=== PATIENT | female | born 1955 | race Caucasian/White ===

== ENCOUNTER 2018-09-18 11:44 | Emergency (ER) | payer MEDICAID ==
[~2018-09-18] VITALS: Ht 167.6 cm; Wt 97.5 kg
[~2018-09-18 11:44] MED LIST: ACETAMINOP160 MG/54 GT; ALBUTEROL2.5 MG/3 M INH; CARDIZEM30 MG GT; CRANBERRY450 M5 GT; GLUCAGON EMERGEN1 MG IJ; KEPPRA LIQ100 MG/1 M GT; LIPITOR20 MG GT; LOPRESSOR25 M1 GT; MILK OF MA400 MG/51 GT; MULTIVITAMINS1 EAC8 GT; SEROQUEL100 MG GT; VALPROIC A250 MG/5 M GT; ZESTRIL20 MG GT; [UNRECOGNIZED DRUG - OTHER]
[2018-09-18 15:03] VITALS: BP 171/111
--- NOTE | 2018-09-18 16:13 | Emergency Room Report ---
History of Present Illness General Chief Complaint: Malfunctioning Gastric Tube Source: Patient Present Illness Allergies: Coded Allergies: No Known Allergies (Unverified , 07/02/15) Patient History Now: No Nursing Documentation-[facility] Past Medical History: No History, Except For Hx Hypertension: Yes Hx Diabetes: Yes Hx Cancer: Yes - SKIN Hx Gastrointestinal Problems: Yes Hx Neurological Problems: Yes Hx Cerebrovascular Accident: Yes Hx Seizures: Yes Physical Exam Vital Signs Date Time Temp Pulse Resp B/P (MAP) Pulse Ox O2 Delivery O2 Flow Rate FiO2 09/18/18 11:39 97.4 78 18 178/104 98 Room Air 97.3 Medical Decision Making Diagnostic Impression: Primary Impression: Malfunction of gastrostomy tube ER Course This patient presents for G-tube replacement. The G-tube was replaced in the typical manner without complication or incident. A KUB was obtained which showed Gastrografin consistent with appropriate placement in the stomach. The patient was returned to the custodial facility. Last Vital Signs Date Time Temp Pulse Resp B/P (MAP) Pulse Ox O2 Delivery O2 Flow Rate FiO2 09/18/18 15:03 97.3 85 18 171/111 96 Room Air 97.3 Disposition: HOME, SELF-CARE Condition: Stable Referrals: Brett Paul MD (PCP) Patient Instructions: Gastrostomy Tube Home Guide, Adult Radha Card DO Sep 18, 2018 16:13
--- NOTE | 2018-09-18 16:48 | Diagnostic Imaging Report ---
Indication: Gastrostomy check Comparison: None Single view of the abdomen obtained Findings: The gastrostomy balloon is in the body of the stomach. There is contrast in the stomach and duodenum. No leak identified. IMPRESSION: Satisfactory position of the gastrostomy. No leak
[2018-09-18 17:01] VITALS: BP 169/105
[2018-09-18 17:12] VITALS: BP 169/105
== END 2018-09-18 17:11 | disposition home or self-care (01) ==
LOC: EDBD 11:44 → EMR 13:10 → EDBEDREQ 14:09 → ENRESERV 15:32 → CANBEDREQ 15:55 → EMR 17:11
DX: K94.23 Gastrostomy malfunction (principal); Y83.3 Surgical operation with formation of external stoma as the cause of abnormal reaction of the patient, or of later complication, without mention of misadventure at the time of the procedure; Y92.9 Unspecified place or not applicable; I10 Essential (primary) hypertension; E11.9 Type 2 diabetes mellitus without complications; Z86.73 Personal history of transient ischemic attack (TIA), and cerebral infarction without residual deficits
CPT/HCPCS: 43760; 74018; 99284; Z7502

== ENCOUNTER 2019-01-11 11:52 | Emergency (ER) | payer MEDICAID ==
[~2019-01-11] VITALS: Ht 167.6 cm; Wt 115.2 kg
[2019-01-11 11:55] VITALS: BP 157/74
--- NOTE | 2019-01-11 11:55 | NUR ---
ED Nurse Note: Pt brought by GER from [facility] for g-tube replacement. noted gtube with soiled dressing. gtube site cleaned. noted rash and reddned area around abd. abd soft nontender, active bs. will cont monitor.
[2019-01-11] MEDS ORDERED: PRO-STAT LIQUID30 ML GT (12:38)
[2019-01-11] MEDS ORDERED: ZESTRIL20 MG GT (12:39)
--- NOTE | 2019-01-11 13:08 | Emergency Room Report ---
History of Present Illness General Chief Complaint: Malfunctioning Gastric Tube Source: Patient, Medical Record Present Illness HPI 63-year-old female sent for malfunction in dislodged G-tube. Patient has no complaints and is not sure how it dislodged. Allergies: Coded Allergies: No Known Allergies (Unverified , 07/02/15) Patient History Past Medical History: see triage record Reviewed Nursing Documentation: PMH: Agreed; PSxH: Agreed Nursing Documentation-PMH Past Medical History: No History, Except For Hx Hypertension: Yes Hx Diabetes: Yes Hx Cancer: Yes - SKIN Hx Gastrointestinal Problems: Yes Hx Neurological Problems: Yes Hx Cerebrovascular Accident: Yes Hx Seizures: Yes Review of Systems All Other Systems: negative except mentioned in HPI Physical Exam Vital Signs Date Time Temp Pulse Resp B/P (MAP) Pulse Ox O2 Delivery O2 Flow Rate FiO2 01/11/19 11:49 97.5 83 21 164/98 97 Room Air Sp02 EP Interpretation: reviewed, normal General Appearance: no apparent distress, alert, non-toxic Head: normocephalic Eyes: bilateral eye normal inspection, bilateral eye PERRL, bilateral eye EOMI ENT: normal ENT inspection, hearing grossly normal, no angioedema, normal voice , moist mucus membranes Neck: normal inspection, supple, supple/symm/no masses Respiratory: chest non-tender, lungs clear, normal breath sounds, chest symmetrical, palpation of chest normal Cardiovascular #1: normal peripheral pulses, regular rate, rhythm, edema - B/L LE Cardiovascular #2: 2+ radial (R), 2+ radial (L) Gastrointestinal: normal inspection, non tender, soft, no mass, no guarding, no rebound, other - vizcarra catheter in g tube site Rectal: deferred Genitourinary: normal inspection, no CVA tenderness Musculoskeletal: back normal, gait/station normal, normal range of motion, non- tender, no calf tenderness Neurologic: alert, responsive, 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 Medical Decision Making Diagnostic Impression: Primary Impression: Malfunction of gastrostomy tube ER Course Patient had a dislodged G-tube, there is a Vizcarra catheter sitting in place when I valuated the stoma, there is no surrounding erythema, tract seem to be well matured with a Vizcarra catheter in place and I replaced the G-tube, patient will be discharged. Other X-Ray Diagnostic Results Other X-Ray Diagnostic Results : X-Ray ordered: kub # of Views/Limited Vs Complete: 1 View Indication: Other - tube replacement Interpretation: no dislocation, no soft tissue swelling, no fractures, nonspecific bowel gas, no sbo Impression: Other - gastrograffin in stomach and duodenum Electronically Signed by: Mary Chilel MD Last Vital Signs Date Time Temp Pulse Resp B/P (MAP) Pulse Ox O2 Delivery O2 Flow Rate FiO2 01/11/19 11:49 97.5 83 21 164/98 97 Room Air Disposition: HOME, SELF-CARE Condition: Stable MARY CHILEL M.D Jan 11, 2019 13:08
--- NOTE | 2019-01-11 13:41 | Diagnostic Imaging Report ---
Indication: Post gastrostomy placement Technique: Supine view of the abdomen after injection of water-soluble contrast into gastrostomy Comparison: 09/18/2018 Findings: Contrast opacifies the stomach. No contrast extravasation is demonstrated. The bowel gas pattern is unremarkable. Stool distends the rectum Impression: Satisfactory position of gastrostomy tube Possible rectal fecal impaction
--- NOTE | 2019-01-11 13:50 | NUR ---
ED Nurse Note: gtube confirmed via xray, ermd aware, plan d/c to snf.
--- NOTE | 2019-01-11 14:25 | NUR ---
ED Nurse Note: Report given to Alanna at [facility] with transportation ETA and GT replacement with 20Fr.
[2019-01-11 14:30] VITALS: BP 170/75
--- NOTE | 2019-01-11 15:02 | NUR ---
ED Nurse Note: Pt was cleared by JEFF to be sent back to [facility] after GT replaced at ER. Pt aao x 0, but verbalizes unrelate things, skin clean and intact, GT site clean and intact, little agiated about seeing unfamiliar people but calm down with explanation and talk therapy. 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
== END 2019-01-11 16:00 | disposition home or self-care (01) ==
LOC: EDBD 11:52 → EMR 12:25
DX: K94.23 Gastrostomy malfunction (principal); Y83.3 Surgical operation with formation of external stoma as the cause of abnormal reaction of the patient, or of later complication, without mention of misadventure at the time of the procedure; E11.9 Type 2 diabetes mellitus without complications; I10 Essential (primary) hypertension; Z85.828 Personal history of other malignant neoplasm of skin; Z86.73 Personal history of transient ischemic attack (TIA), and cerebral infarction without residual deficits
CPT/HCPCS: 43762; 74018; 99283; Z7502

== ENCOUNTER 2019-01-12 11:01 | Emergency (ER) | payer MEDICAID ==
[~2019-01-12] VITALS: Ht 160 cm; Wt 81.6 kg
[~2019-01-12 11:01] MED LIST changes: +PRO-STAT LIQUID30 ML GT
--- NOTE | 2019-01-12 11:53 | Diagnostic Imaging Report ---
Indication: Post gastrostomy replacement Technique: Supine view of the abdomen after injection of water-soluble contrast into gastrostomy Comparison: 01/11/2019 Findings: Contrast opacifies the stomach. No contrast extravasation is demonstrated. The bowel gas pattern is unremarkable. Contrast from the previous day's injection is seen within the colon Impression: Satisfactory position of gastrostomy tube
[2019-01-12 12:00] VITALS: BP 127/61
--- NOTE | 2019-01-12 12:00 | NUR ---
ED Nurse Note: pt brought by GER from [facility] due to dislodge of g-tube. g-tube replaced yesterday at [facility] ER. per EMS, pt pulled out the g-tube. AAO x2. skin warm to touch. no open wound noted. respirations even and non-labored noted. Dr. Block inserted 18 F g-tube at the bed side without any difficulty. gastrografin pushed, x-ray took, flused with 60 ml of tap water. pt transferred back to SNF by GER [id number].
--- NOTE | 2019-01-12 12:02 | NUR ---
ED Nurse Note: RN attempted to give a report to SNF. no answer.
--- NOTE | 2019-01-13 07:51 | Emergency Room Report ---
History of Present Illness General Chief Complaint: Malfunctioning Gastric Tube Source: Medical Record Present Illness HPI 63-year-old female presents ED for evaluation. Patient brought in by EMS for G- tube replacement. [facility] Replaced with Woodruff catheter. Per EMS patient was here yesterday for the same problem and G-tube was replaced by ER physician. Upon arrival patient showing no signs of distress. No reported nausea or vomiting. Nonverbal at baseline. No other aggravating relieving factors. No other associated symptoms Allergies: Coded Allergies: No Known Allergies (Unverified , 07/02/15) Patient History Past Medical History: DM, HTN, CVA/TIA, seizures Pertinent Family History: none Social History: Denies: smoking, alcohol use, drug use Now: No Immunizations: UTD Reviewed Nursing Documentation: PMH: Agreed; PSxH: Agreed Nursing Documentation-PMH Hx Hypertension: Yes Hx Diabetes: Yes Hx Cancer: Yes - SKIN Hx Gastrointestinal Problems: Yes Hx Neurological Problems: Yes Hx Cerebrovascular Accident: Yes Hx Seizures: Yes Review of Systems All Other Systems: limited Physical Exam Vital Signs Date Time Temp Pulse Resp B/P (MAP) Pulse Ox O2 Delivery O2 Flow Rate FiO2 01/12/19 11:08 97.9 70 16 127/61 97 Room Air Sp02 EP Interpretation: reviewed, normal General Appearance: no apparent distress, alert, non-toxic Head: normocephalic ENT: normal ENT inspection Neck: normal inspection Respiratory: chest non-tender, lungs clear, normal breath sounds, speaking full sentences Cardiovascular #1: regular rate, rhythm, no edema Gastrointestinal: normal bowel sounds, non tender, soft, non-distended, no guarding, no rebound, other - Gtube site C/D/I Rectal: deferred Genitourinary: no CVA tenderness Musculoskeletal: normal inspection Neurologic: other - nonverbal Psychiatric: other - nonverbal Skin: normal inspection Lymphatic: normal inspection Procedures Additional Procedure Procedure Narrative G-tube placement Patient placed on stretcher. Old G-tube is removed by deflating the balloon using syringe. G-tube site is inspected with no contraindications to G-tube placement. G-tube slowly inserted until resistance is met; G-tube balloon is slowly filled with 20 mL of normal saline and slowly retracted back until resistance is met. G-tube placement is confirmed with KUB study using Gastrografin Medical Decision Making Diagnostic Impression: Primary Impression: Malfunction of gastrostomy tube ER Course Hospital Course 63-year-old female presents to ED for G-tube placement. [facility]ed [facility]tube at [facility] Clinical course Patient placed on stretcher. After initial history and physical I replaced G- tube and inflate the balloon. G-tube placement confirmed with KUB study. Patient remained stable without any signs of distress. detention called and patient subsequently discharged back to facility. Dr Paul made aware that G-tube was successfully replaced and patient return to facility Diagnosis - malfunction of G tube stable and discharged back to facility. Followup with PMD. Return to ED if symptoms recur or worsen Other X-Ray Diagnostic Results Other X-Ray Diagnostic Results : X-Ray ordered: KUB # of Views/Limited Vs Complete: 1 View Indication: Other - Gtube placement EP Interpretation: Yes Interpretation: nonspecific bowel gas, no sbo, other - Gtube in place. no extravasation Impression: Other - Gtube in place Electronically Signed by: Electronically signed by Timbo Block MD Last Vital Signs Date Time Temp Pulse Resp B/P (MAP) Pulse Ox O2 Delivery O2 Flow Rate FiO2 01/12/19 12:00 97.9 70 22 127/61 97 Room Air Status: improved Disposition: XFER SNF Condition: Stable Patient Instructions: Gastrostomy Tube Home Guide, Adult Timbo Block MD Jan 13, 2019 07:51
== END 2019-01-12 12:02 ==
LOC: EDBD 11:01 → EMR 11:37
DX: K94.23 Gastrostomy malfunction (principal); Y83.3 Surgical operation with formation of external stoma as the cause of abnormal reaction of the patient, or of later complication, without mention of misadventure at the time of the procedure; Y92.129 Unspecified place in nursing home as the place of occurrence of the external cause; E11.9 Type 2 diabetes mellitus without complications; I10 Essential (primary) hypertension; Z85.828 Personal history of other malignant neoplasm of skin; Z86.73 Personal history of transient ischemic attack (TIA), and cerebral infarction without residual deficits
CPT/HCPCS: 43762; 74018; 99283; Z7502

== ENCOUNTER 2019-03-06 00:44 | Inpatient (IN) | payer MEDICAID ==
[2019-03-06] VITALS (9 sets, daily range): BP systolic 79–109; BP diastolic 39–86
[~2019-03-06] VITALS: Ht 167.6 cm; Wt 112.5 kg
--- NOTE | 2019-03-06 01:00 | NUR ---
ED Nurse Note: RECIEVED PT BIBA FROM SNF WITH C/O FEVER AT 103, PT WAS MEDICATED WITH TYLENOL KALSOMINER, PT IS ON GURNEY AWAKE, ALERT AND ORIENTED X 4, SLIGHTLY LETHARGIC BUT DOES RESPOND APPROPRIATELY, PT DENIES CP OR ANY PAIN, PT SKIN IS VERY HOT TO TOUCH, ALSO NOTED WITH CELLULITIS OF RIGHT HIP, MD AWARE, PT IMMEDIATELY GOWNED AND PLACED ON CARDIAC MONITORING, RECTAL TEMPT TAKEN ALSO, IV LINE PLACED AND LABS DRAWN, WILL START SEPTIC PROTOCOL PER MD ORDER AND CLOSELY MONITOR, PT HAS SEIZURE HISTORY, PRECAUTIONS TAKEN AND SIDE RAILS PADDED, WILL RESUME CARE ORDERED AND CLOSELY MONITOR.
[2019-03-06] MEDS ORDERED: Sodium Chloride 3,400 ML IVLG ONE (01:15)
[2019-03-06 01:26] LABS: BASOPHILS % (AUTO) 0.5 % (0.0-2.0); HEMATOCRIT 40.5 % (37.0-47.0); HEMOGLOBIN 13.7 G/DL (12.0-16.0); LYMPHOCYTES % (AUTO) 13.5 % (20.0-45.0); MEAN CORPUSCULAR VOLUME 92 FL (80-99); MONOCYTES % (AUTO) 5.2 % (1.0-10.0); NEUTROPHILS % (AUTO) 80.8 % (45.0-75.0); PLATELET COUNT 149 K/UL (150-450); RED BLOOD COUNT 4.38 M/UL (4.20-5.40); RED CELL DISTRIBUTION WIDTH 13.2 % (11.6-14.8); WHITE BLOOD COUNT 13.7 K/UL (4.8-10.8)
[2019-03-06] MEDS ORDERED: Vancomycin 1.5 GM in NS 275 ML IVPB ONE (01:30)
[2019-03-06] MEDS ORDERED: Cefepime HCl 1 GM in D5W 55 ML IVPB ONE (01:30)
[2019-03-06 01:31] LABS: ANION GAP 12 mmol/L (5-15); BLOOD UREA NITROGEN 28 mg/dL (7-18); CALCIUM 8.6 MG/DL (8.5-10.1); CARBON DIOXIDE 24 MMOL/L (21-32); CHLORIDE 102 MMOL/L (98-107); CREATININE 0.8 MG/DL (0.55-1.30); SODIUM 137 MMOL/L (136-145)
--- NOTE | 2019-03-06 01:32 | Emergency Room Report ---
History of Present Illness General Chief Complaint: Fever Source: Patient, Medical Record, EMS Present Illness HPI This is a 63-year-old female with a history heart failure, epilepsy, schizophrenia who presents with chief complaint of fever. Onset for 1 day. Also with redness to the right thigh area. No nausea no vomiting. Fever of 103 at the senior care. History is limited this patient because of her condition. There is no nausea no vomiting. Reported cough at the senior care. Allergies: Coded Allergies: No Known Allergies (Unverified , 07/02/15) Patient History Past Medical History: see triage record, old chart reviewed Past Surgical History: other Pertinent Family History: none Social History: Denies: smoking Now: No Immunizations: UTD, other Reviewed Nursing Documentation: PMH: Agreed; PSxH: Agreed Nursing Documentation-PMH Past Medical History: No History, Except For Hx Hypertension: Yes Hx Diabetes: Yes Hx Cancer: Yes - SKIN Hx Gastrointestinal Problems: Yes Hx Neurological Problems: Yes Hx Cerebrovascular Accident: Yes Hx Seizures: Yes Review of Systems Constitutional: Reports: fever All Other Systems: limited - Limited because of her Condition Physical Exam Vital Signs Date Time Temp Pulse Resp B/P (MAP) Pulse Ox O2 Delivery O2 Flow Rate FiO2 03/06/19 00:42 100.9 80 18 118/46 96 Nasal Cannula 2.0 vitals with fever Sp02 EP Interpretation: reviewed, normal General Appearance: well appearing, no apparent distress, alert, obese Head: normocephalic, atraumatic Eyes: bilateral eye PERRL, bilateral eye EOMI ENT: hearing grossly normal, normal pharynx Neck: full range of motion, supple, no meningismus Respiratory: chest non-tender, lungs clear, normal breath sounds Cardiovascular #1: regular rate, rhythm, no murmur Gastrointestinal: normal bowel sounds, non tender, no mass, no organomegaly, no bruit, non-distended Musculoskeletal: back normal, normal range of motion, other - Right thigh: She has extensive erythema from the iliac crest to the distal thigh laterally. No crepitance. Warm to the touch. Painful. Neurologic: alert Psychiatric: mood/affect normal Skin: warm/dry Medical Decision Making Diagnostic Impression: Primary Impression: Sepsis Qualified Codes: A41.9 - Sepsis, unspecified organism Additional Impressions: Cellulitis of right leg without foot Ventricular tachycardia, nonsustained Morbid obesity with BMI of 40.0-44.9, adult ER Course Patient presents with fever and sepsis. This probably secondary to a large cellulitis in her right upper leg and thigh area. I see no evidence of necrotizing fasciitis. I see no evidence of abscess. Cefepime and vancomycin given. Blood pressure improved with IV fluid. She was doing well and more responsive when she had a nonsustained run of ventricular tachycardia. This lasted about 30 seconds. No deterioration. She was responsive throughout. I discussed case with Dr. Paul who will admit. EKG Diagnostic Results Rate: normal Rhythm: NSR ST Segments: no acute changes Rhythm Strip Diag. Results EP Interpretation: yes Rate: 68 Rhythm: NSR, no PVC's, no ectopy Chest X-Ray Diagnostic Results Chest X-Ray Diagnostic Results : Chest X-Ray Ordered: Yes # of Views/Limited/Complete: 1 View Indication: Shortness of Breath EP Interpretation: Yes Interpretation: no consolidation, no effusion, no pneumothorax, no acute cardiopulmonary disease Impression: No acute disease Electronically Signed by: Darrius Juarez MD Last Vital Signs Date Time Temp Pulse Resp B/P (MAP) Pulse Ox O2 Delivery O2 Flow Rate FiO2 03/06/19 00:42 100.9 80 18 118/46 96 Nasal Cannula 2.0 Status: improved Disposition: ADMITTED INPATIENT Condition: Serious Darrius Juarez MD Mar 06, 2019 01:32
[2019-03-06 01:45] LABS: ALANINE AMINOTRANSFERASE 63 U/L (12-78); ALBUMIN 2.9 G/DL (3.4-5.0); ALBUMIN/GLOBULIN RATIO 0.7 (1.0-2.7); ALKALINE PHOSPHATASE 106 U/L (46-116); ASPARTATE AMINO TRANSFERASE 42 U/L (15-37); BILIRUBIN,TOTAL 0.8 MG/DL (0.2-1.0); CKMB < 0.5 NG/ML (0.0-3.6); CREATINE KINASE 33 U/L (26-308)
--- NOTE | 2019-03-06 02:30 | NUR ---
ED Nurse Note: LACTIC REFLEX DRAWN; SENT DOWN TO LAB.
--- NOTE | 2019-03-06 03:45 | NUR ---
ED Nurse Note: PT CONTINUES TO REST QUIETLY IN BED, SUDDENNLY HAD EPISODE OF VTACH/FIB NOTED ON EKG, MD INFORMED IMMEDIATELY, REPEAT EKG DONE AND PT ALREADY CONVERTED BACK TO NSR, PT REMAINS AWAKE AND ALERT, DENIES CP BUT STATES HAVING ABDOMINAL PAIN, PT ALSO NOTED WITH DIARRHEA, PT CLEANED AND LINEN CHANGED, PT HAS SKIN TEAR IN MID BUTTOCKS AREA, PHOTOS TAKEN AND MD INFORMED, PT REPOSITIONED AND TURNED WITH PILLOW SUPPORT, PT BEING PREAPRED FOR HOSPITAL ADMISSION, ALSONOTED WITH SUDDEN WHEEZING, BREATHING TREATMENT GIVEN BY RT, O2 SAT=97% ON 2L N/C, WILL CONTINUE TO CLOSELY MONITOR. PT TEMP DECREASED TO 100.4 RECTAL.
[2019-03-06] MEDS ORDERED: Albuterol ud Inhalation HHN ONE (04:00)
[2019-03-06 04:30] LABS: APPEARANCE,URINE CLOUDY; BILIRUBIN, URINE NEGATIVE (NEGATIVE); GLUCOSE, URINE (UA) NEGATIVE (NEGATIVE); KETONES,URINE 1+ (NEGATIVE); LEUKOCYTE ESTERASE ,URINE 3+ (NEGATIVE); NITRITE,URINE POSITIVE (NEGATIVE); PH,URINE 5 (4.5-8.0); PROTEIN,URINE 2+ (NEGATIVE); UROBILINOGEN,URINE 1 MG/DL (0.0-1.0)
[2019-03-06 04:38] LABS: COLOR,URINE YELLOW
--- NOTE | 2019-03-06 05:15 | NUR ---
ED Nurse Note: pt continues to rest in bed, responds appropriately, remains in nsr on cardiac monitoring, denies chest pain, sob has lessened, o2 huv=734% on 2l n/c, pt repositioned and turned with pillows to support, will continue to monitor while waiting for room for hospital admission.
[2019-03-06] MEDS: Albuterol/Ipratropium 3ml neb HHN SCH ×5 (07:00→23:27)
--- NOTE | 2019-03-06 07:15 | NUR ---
ED Nurse Note: attempted to report to maya londono on unit, unavailable due to still in report, shift report given to maya gaines, pt resting in bed quietly, nad noted, iv site patent, pt waiting to go to floor for admission.
[2019-03-06] MEDS: dilTIAZem HCl 30mg tab GT SCH ×3 (08:00→20:41)
--- NOTE | 2019-03-06 08:00 | NUR ---
NURSE NOTES: Received report from AFIA Khoury RN. Pt came to tele via Balloon. Pt is alert oriented x1 in stable condition. Patient has no Belonging . IV is asymptomatic and patent. Bed is in the lowest position, 2 side rails up, and break are engaged. Call light, side table within reach. patient had medication at 7;30 which haven't received in ER. Will continue to monitor.
[2019-03-06] MEDS: Metoprolol 25mg tab GT SCH ×2 (09:00→20:41)
[2019-03-06] MEDS ORDERED: Lisinopril 20mg tab GT SCH (09:00)
[2019-03-06] MEDS: levETIRAcetam 500mg/5ml Liquid GT SCH ×2 (09:56→20:46)
[2019-03-06] MEDS: Heparin 5000 units/ml inj SUBQ SCH ×2 (10:01→20:47)
--- NOTE | 2019-03-06 10:13 | NUR ---
*-* INSURANC E *-* AVAILABLE CLINICALS HAVE BEEN FAXED TO: [facility] - GENERIC FAX # NO INFO IN THE BAR [phone] Work Work Fax
[2019-03-06] MEDS: 1/2NS w/KCl 20mEq 1000ml 1,000 ML IV SCH ×2 (10:58→18:53)
--- NOTE | 2019-03-06 11:45 | NUR ---
RD ASSESSMENT & RECOMMENDATIONS SEE CARE ACTIVITY FOR COMPLETE ASSESSMENT DAILY ESTIMATED NEEDS: Needs based on Obesity, Sepsis/ 73kg abw 22-25 kcals/kg 1688-7106 total kcals 1-2 g protein/kg 73-146 g total protein 25-30 mL/kg 7723-7106 total fluid mLs NUTRITION DIAGNOSIS: Swallowing difficulty R/T dysphagia as evidenced by pt is PEG dep. CURRENT TF:Glucerna 1.5 @ 70ml/hr x 24 hrs -> EXCESSIVE ENTERAL NUTRITION RECOMMENDATIONS: Glucerna 1.5 @ 50ml/hr x 24 hrs to provide 1200ml, 1800kcal, 99g prot, 911ml free water * Rec to LOWER TF rate to 50ml/hr x 24 hrs ->meets 100% est kcal/prot needs * HOB over 30 degrees/ water flush per MD ADDITIONAL RECOMMENDATIONS: * Txr pt to bed with bedscale * Weekly calibrated bedscale wts * A1C for eval of glycemic control- h/o DM * Monitor BGs closely, need for SSI * Monitor lytes closely, replete as needed
--- NOTE | 2019-03-06 12:11 | Cardiology Report ---
APPROVED REPORT EXAM: Two-dimensional and M-mode echocardiogram with Doppler and color Doppler. INDICATION Abnorma card func study M-Mode DIMENSIONS IVSd0.8 (0.7-1.1cm)Left Atrium (MM)3.6 (1.6-4.0cm) LVDd4.5 (3.5-5.6cm)Aortic Root3.3 (2.0-3.7cm) PWd1.1 (0.7-1.1cm)Aortic Cusp Exc.1.8 (1.5-2.0cm) IVSs1.3 cm LVDs3.2 (2.5-4.0cm) PWs1.7 cm Normal left ventricular chamber size, systolic function and wall motion to extend visualized . Left ventricular ejection fraction estimated to be 55-60%. Mild left ventricular hypertrophy by 2-D. Anterior Echo-free space, may be due to pericardial fat or effusion. Mild left atrial enlargement . Right cardiac chamber sizes are within normal limits. Focal aortic valve sclerosis with adequate cusp excursion. Aortic root calcification Mitral annulous calcification Mildly Thickened mitral valve leaflets with normal excursion. pulmonic valve not well visualized. Normal tricuspid valve structure. IVC dilated at 2.9cm without physiologic collapse suggestive of increased RA pressure. A color flow and spectral Doppler study was performed and revealed: No aortic regurgitation. Trace mitral regurgitation. Mitral diastolic velocities suggest reduced left ventricular relaxation c/w mild LV diastolic dysfunction (Grade I ). Trace tricuspid regurgitation. Tricuspid systolic velocities suggests peak right ventricular systolic pressure of 24mmHg.
--- NOTE | 2019-03-06 12:25 | Cardiology Report ---
APPROVED REPORT EKG Measurement Heart [id number] Normal sinus rhythm Normal ECG
--- NOTE | 2019-03-06 12:25 | Cardiology Report ---
APPROVED REPORT EKG Measurement Heart [id number] Normal sinus rhythm Normal ECG
--- NOTE | 2019-03-06 12:56 | Diagnostic Imaging Report ---
Indication: Shortness of breath Technique: One view of the chest Comparison: 07/02/2015 Findings: Less optimal inspiration currently. Heart size is borderline enlarged. Lungs and pleural spaces are clear. Impression: Borderline cardiomegaly No acute process
[2019-03-06] MEDS: Vancomycin 1.25gm Premix IVPB SCH (16:30)
--- NOTE | 2019-03-06 19:15 | NUR ---
HAND-OFF: Report given to JOANIE Rae.
--- NOTE | 2019-03-06 19:38 | NUR ---
NURSE NOTES: patient received. patient in no acute distress at this time. patient complains of no pain at this time. patient alert and oriented x2. seizure precautions done. bed side rails padded. Gtube running and patient . IV intact and asymptomatic. bed in lowest position and locked. call light within reach. bed alarm on . will continue to monitor.
[2019-03-06] MEDS: Lisinopril 20mg tab GT SCH (20:41)
[2019-03-06] MEDS: Valproic Acid 250mg/5ml Liquid GT SCH (20:46)
[2019-03-06] MEDS ORDERED: Atorvastatin 20mg tab GT SCH (21:00)
[2019-03-06] MEDS ORDERED: Milk of Magnesia 30ml Ud ORAL PRN (21:00)
--- NOTE | 2019-03-06 23:30 | History and Physical Report ---
DATE OF ADMISSION: 03/06/2019 CHIEF COMPLAINT AND REASON FOR HOSPITALIZATION: The patient is a 63-year-old lady, admitted with fever, possible sepsis, and cellulitis. HISTORY OF PRESENT ILLNESS: The patient is a resident of an [facility]. I was called that she had fever more than 102 and was wheezing in moderate distress and was sent to the emergency room. In the emergency room, chest x-ray was negative. She was cultured and started on broad-spectrum antibiotics. She has cellulitis on the right upper thigh. She also is incontinent of urine. The patient has a history of schizophrenia and CVA and seizure disorder. She is bedridden and gets gastrostomy feedings. She has severe dementia. There is apparently a prior history of paroxysmal atrial fibrillation many years ago, not recurrent. She also in the emergency room had a wide complex tachyarrhythmia, possible ventricular tachycardia versus atrial fib with aberrancy, which spontaneously resolved and she is now in sinus rhythm. 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 MEDICATIONS: Keppra 750 daily, , multivitamin daily, Seroquel 50 mg daily, Lipitor 20 mg daily, Tylenol p.r.n., cranberry 450 every 8 hours, tube feedings, valproic acid 500 mg daily, glucagon p.r.n., MOM p.r.n., Lopressor 25 mg q.12 hours, and Zestril 20 mg q.12 hours. HABITS: She is a former smoker. Nondrinker. SOCIAL HISTORY: She lives in [facility]. She is not in touch with family. REVIEW OF SYSTEMS: The patient is inarticulate and unable to really get adequate review. PHYSICAL EXAMINATION: GENERAL: The patient is a morbidly obese lady lying in bed, currently in no distress. VITAL SIGNS: Temperature 99.9, pulse 70, respirations 18, and blood pressure 96/45. HEENT: Sclerae are nonicteric. Ocular motions intact in all directions. Oral mucosa slightly dry. NECK: No adenopathy. LUNGS: Clear. Distant breath sounds. HEART: Rhythm is regular. I hear no murmur. ABDOMEN: Soft and obese without organomegaly. Gastrostomy tube is in place. EXTREMITIES: Show degenerative changes in the knees. No edema or cyanosis. SKIN: Shows a large erythema along the right lateral thigh without any ulceration. NEUROLOGIC: She is alert and responsive, but confused and disoriented. Ocular motions intact in all directions. There appears to be a subtle bilateral seventh nerve palsy. She has weakness in all four extremities. PERTINENT LABORATORY DATA: Show normal electrolytes, BUN 28, creatinine 0.8, and glucose 147. AST is 42. The total CK is 33. Lactic acid 2.2, repeat 1.1. Troponin 0.020 and 0.020 repeat. TSH 0.314. Urinalysis shows too numerous to count white cells and red cells. White count 13.7 and hemoglobin 13.7. Chest x-ray, no active disease. EKG shows sinus rhythm. IMPRESSION: 1. Fever and possible sepsis. Etiologies include urinary tract infection, pyelonephritis, and cellulitis. 2. Chronic obstructive pulmonary disease. 3. Schizophrenia. 4. Advanced dementia. 5. Bilateral cerebrovascular accidents. 6. History of seizures. 7. Bedridden state. 8. Mild lactic acidosis, resolved. PLAN: 1. Hydration. 2. Broad-spectrum antibiotics. 3. Await cultures and adjust medications. 4. Continue tube feedings. Brett Paul M.D. DR: SUDHAKAR JOB#: [id number] CC:
[2019-03-07] VITALS: BP 101/67
[2019-03-07] MEDS: Albuterol/Ipratropium 3ml neb HHN SCH ×3 (03:31→10:40)
[2019-03-07] MEDS: Vancomycin 1.25gm Premix IVPB SCH (03:49)
[2019-03-07] MEDS: 1/2NS w/KCl 20mEq 1000ml 1,000 ML IV SCH (03:49)
[2019-03-07 04:00] VITALS: BP 111/60
--- NOTE | 2019-03-07 04:30 | Consultation ---
DATE OF CONSULTATION: 03/06/2019 CARDIOLOGY CONSULTATION CONSULTING PHYSICIAN: Shadi Sampson M.D. REQUESTING PHYSICIAN: Brett Paul M.D. REASON FOR CONSULTATION: Possible arrhythmias. HISTORY OF PRESENT ILLNESS: A 63-year-old resides at a prison facility and is debilitated as a result of severe dementia. The patient was transferred from a prison facility for evaluation of fevers above 102 with respiratory distress. In the emergency room, she was noted to have some irregular wide complex heart rhythms although no documentation was obtained in time and no other data is available. The patient does have a prior history of paroxysmal atrial fibrillation. The patient did not have any perceived change in mental status or alertness during these episodes. PAST MEDICAL HISTORY: Cerebrovascular disease, dementia, paroxysmal atrial fibrillation, squamous cell carcinoma of the chest, dysphagia with G-tube, seizure disorder, and COPD. MEDICATIONS: Reviewed and reconciled. ALLERGIES: None known. SOCIAL HISTORY: Prior smoker. No history of alcohol use. FAMILY HISTORY: Noncontributory. REVIEW OF SYSTEMS: Otherwise not obtainable. PHYSICAL EXAM: GENERAL: Morbidly obese. No acute distress. VITAL SIGNS: Blood pressure 96/45, heart rate 70, and respiratory rate 18. Monitored rhythm, sinus. Oropharynx clear. Mucous membranes dry. NECK: Supple and obese. Jugular venous pressure cannot be assessed. LUNGS: Clear with diminished breath sounds. CARDIAC: Reveals regular rhythm and rate. Normal S1, S2 with no appreciable murmur. ABDOMEN: Obese and soft. G-tube intact. EXTREMITIES: Reveal no edema. There is some erythematous changes on the thighs. NEUROLOGIC: Reveals alert and responsive, but confused and symmetric weakness. LABORATORY DATA: Troponin levels are negative x2. BUN 28 and creatinine 0.8. Urinalysis with too numerous to count white cells. White count 13.7. EKG reveals sinus rhythm, voltage for left ventricular hypertrophy. No arrhythmia and no acute ST-T changes. IMPRESSION: 1. Sepsis. 2. Hypovolemia and dehydration. 3. Early shock. 4. Chronic obstructive pulmonary disease. 5. Paroxysmal atrial fibrillation. 6. Probable atrial fibrillation with aberrancy noted in the emergency room. 7. Cerebrovascular disease with debility and bed ridden state. PLAN: 1. Conservative management. 2. No role for antiarrhythmics. 3. Check echocardiogram. 4. Titrate beta gerry. 5. Would only consider amiodarone for recurring sustained arrhythmias. Shadi Sampson M.D. DR: VICKIE JOB#: [id number] CC:
[2019-03-07] MEDS: dilTIAZem HCl 30mg tab GT SCH (06:00)
--- NOTE | 2019-03-07 07:22 | NUR ---
HAND-OFF: Report given to maya londono.
--- NOTE | 2019-03-07 07:23 | NUR ---
NURSE NOTES: Report received from JOANIE Rae. Pt is resting in bed, sleeping and in stable condition. Breathing is even and unlabored in room air. No acute distress noted at this time. IV site is patent. G-tube feeding is running at 28 ml/hr.Bed is in lowest position with brake engaged, side rails up x2. Call light and side table placed within reach. Will continue to monitor.
[2019-03-07 07:36] LABS: BASOPHILS % (AUTO) 0.6 % (0.0-2.0); EOSINOPHILS % (AUTO) 0.7 % (0.0-3.0); HEMATOCRIT 35.1 % (37.0-47.0); HEMOGLOBIN 11.5 G/DL (12.0-16.0); LYMPHOCYTES % (AUTO) 22.1 % (20.0-45.0); MEAN CORPUSCULAR VOLUME 95 FL (80-99); MONOCYTES % (AUTO) 12.5 % (1.0-10.0); NEUTROPHILS % (AUTO) 64.1 % (45.0-75.0); PLATELET COUNT 100 K/UL (150-450); RED BLOOD COUNT 3.71 M/UL (4.20-5.40); RED CELL DISTRIBUTION WIDTH 13.3 % (11.6-14.8); WHITE BLOOD COUNT 6.5 K/UL (4.8-10.8)
[2019-03-07 07:52] LABS: ALANINE AMINOTRANSFERASE 41 U/L (12-78); ALBUMIN 2.3 G/DL (3.4-5.0); ALBUMIN/GLOBULIN RATIO 0.5 (1.0-2.7); ALKALINE PHOSPHATASE 76 U/L (46-116); ANION GAP 9 mmol/L (5-15); ASPARTATE AMINO TRANSFERASE 37 U/L (15-37); BILIRUBIN,TOTAL 0.6 MG/DL (0.2-1.0); BLOOD UREA NITROGEN 20 mg/dL (7-18); CALCIUM 8.7 MG/DL (8.5-10.1); CARBON DIOXIDE 22 MMOL/L (21-32); CHLORIDE 110 MMOL/L (98-107); CREATININE 0.7 MG/DL (0.55-1.30); POTASSIUM 4.2 MMOL/L (3.5-5.1); SODIUM 141 MMOL/L (136-145)
[2019-03-07 08:00] VITALS: BP 98/72
--- NOTE | 2019-03-07 08:26 | NUR ---
CASE MANAGEMENT:REVIEW 63 YR OLD FEMALE BIBA FROM [facility] CC: RT THIGH ABSCESS AND FEVER SI: SEPSIS. RLE CELLULITIS 100.9 80 18 95/55 96% ON 2L/NC WBC+13.7 IS: 1L NS BOLUS IV CEFEPIME IV VANCOMYCIN CXR BLOOD CX : TO TELEMETRY INTERQUAL CRITERIA MET
[2019-03-07] MEDS: Metoprolol 25mg tab GT SCH (09:00)
[2019-03-07] MEDS: Heparin 5000 units/ml inj SUBQ SCH (09:00)
[2019-03-07] MEDS: Lisinopril 20mg tab GT SCH (09:00)
[2019-03-07] MEDS: Valproic Acid 250mg/5ml Liquid GT SCH (09:11)
[2019-03-07] MEDS: levETIRAcetam 500mg/5ml Liquid GT SCH (09:12)
--- NOTE | 2019-03-07 10:18 | NUR ---
NURSE NOTES: Patient seen by Dr. Humberto RN discussed about the POLST status in the chart which says Full Code. Doctor Humberto told RN patient will be DNR/DNI during hospitalization. Doctor Humberto might discharge the patient tomorrow after he reviews all the chart.
[2019-03-07] MEDS ORDERED: CEPHALEXIN500 MG ORAL (10:30)
[2019-03-07] MEDS ORDERED: DOXYCYCLINE MO100 M2 PO (10:30)
--- NOTE | 2019-03-07 11:24 | NUR ---
DISCHARGE PLANNED CLINICALS FAXED TO [facility] T: [phone] F: [phone] AWAIT ACCEPTANCE AND ROOM NUMBER
--- NOTE | 2019-03-07 11:35 | NUR ---
*-* INSURANC E *-* AVAILABLE CLINICALS HAVE BEEN FAXED TO: [employer] - GENERIC FAX # NO INFO IN THE BAR [phone] Work Fax
--- NOTE | 2019-03-07 11:51 | NUR ---
DISCHARGE PLANNED PATIENT WILL RETURN TO [facility] 8B RESIDENTIAL T: [phone] ~ ASK FOR AMARA FOR NURSE TO NURSE REPORT [facility] HAS BEEN ARRANGED FOR [address] [employer]
[2019-03-07 12:00] VITALS: BP 111/48
--- NOTE | 2019-03-07 13:50 | NUR ---
NURSE NOTES: Patient discharged to [facility] per Dr. Paul's order. Patient has no belonging, and she discharged from IV and monitors. heart monitor returned to air sampling and monitoring. At 1326 called to SNF and report given to JOANIE Maynard ([facility]). At 1333 called to inform family for transfer (Jerome Parnell) no answer and mailbox was full. Patient went to SNF with [facility] in stable condition.
--- NOTE | 2019-03-08 03:15 | Discharge Summary ---
DATE OF ADMISSION: 03/06/2019 DATE OF DISCHARGE: 03/07/2019 PERTINENT HISTORY: The patient is a 63-year-old lady, who lives in an F, who is bedridden and has a feeding tube, schizophrenia, and prior strokes. She presented with a fever more than 102 at the [facility] and some wheezing and was in mild distress in the [facility]. PERTINENT PHYSICAL FINDINGS: GENERAL: At the time of my exam, she was no longer in distress. She is morbidly obese. Alert. HEENT: Oral mucosa slightly dry. NECK: No adenopathy. LUNGS: Clear. Distant breath sounds. HEART: Regular rhythm. No murmur. ABDOMEN: Soft and obese. No organomegaly. The gastrostomy tube is in place. EXTREMITIES: Show degenerative changes in the knees. NEUROLOGIC: She has weakness in all four extremities. She is alert, but confused. SKIN: Shows large erythema along the right lateral thigh without any ulceration. COURSE IN THE HOSPITAL: The patient was cultured and started on cefepime and vancomycin. At the time of discharge, her blood and urine cultures were negative although she had pyuria. The patient had a wide complex tachycardia, possible atrial fibrillation with aberrancy or ventricular tachycardia in the emergency room, but had no further arrhythmias. Troponin is 0.020 and 0.020 repeated. The patient remained afebrile, in no distress. The electrolytes were normal. The white count went from 13.7 to 6.5. The patient is in no distress. Her lungs were clear. Heart, regular rhythm. Abdomen, soft. Skin showed a fading erythema on right lateral thigh and she was discharged back to the [facility] in stable condition. FINAL DIAGNOSES: 1. Fever and chills. 2. Cellulitis of the right thigh. 3. Pyuria. Urine culture negative at the time of discharge. Final results pending and will be checked. 4. Morbid obesity. 5. Multi-infarct dementia with functional quadriplegia. 6. Dysphagia with gastrostomy feeding. 7. Schizophrenia. 8. Wide complex tachyarrhythmia likely atrial fibrillation with aberrancy without recurrence. DISCHARGE DISPOSITION: To the [facility] on tube feedings and medications per the discharge medication list. Follow up by Dr. Paul in the facility. Of note, we will start her on doxycycline 100 mg q.12 hours and Keflex 500 mg q.6 hours at the facility pending any further culture results. Brett Paul M.D. DR: SUDHAKAR JOB#: [id number] CC:
--- NOTE | 2019-03-08 03:45 | Progress Note ---
DATE: 03/07/2019 CARDIOLOGY PROGRESS NOTE SUBJECTIVE: The patient has faired well. No new complaints. Monitored rhythm, sinus. OBJECTIVE: VITAL SIGNS: Blood pressure 111/48, pulse 77, and respirations 21. LUNGS: Clear. CARDIAC: Regular. ABDOMEN: Soft. EXTREMITIES: No edema. LABORATORY DATA: White count 6 and hemoglobin 11. Potassium 4.2, BUN 20, and creatinine 0.7. Albumin 2.3. IMPRESSION AND PLAN: 1. Sepsis. 2. Chronic obstructive pulmonary disease. 3. Resolved lactic acidosis. 4. No evidence of cardiac arrhythmias. Overall stable from cardiovascular standpoint to complete recovery at intermediate facility. Shadi Sampson M.D. DR: VICKIE JOB#: [id number] CC:
== END 2019-03-07 13:50 | DRG 383 ==
LOC: EDBD 00:44 → EMR 01:30 → EDBEDREQ 02:47 → 2E 03:10 → EDBEDREQ 06:21
DX: L03.115 Cellulitis of right lower limb (principal); R53.2 Functional quadriplegia; I48.0 Paroxysmal atrial fibrillation; E66.01 Morbid (severe) obesity due to excess calories; R13.10 Dysphagia, unspecified; F20.9 Schizophrenia, unspecified; F01.50 Vascular dementia, unspecified severity, without behavioral disturbance, psychotic disturbance, mood disturbance, and anxiety; Z43.1 Encounter for attention to gastrostomy; Z85.828 Personal history of other malignant neoplasm of skin; J44.9 Chronic obstructive pulmonary disease, unspecified; Z74.01 Bed confinement status; Z68.41 Body mass index [BMI] 40.0-44.9, adult; Z66 Do not resuscitate
CPT/HCPCS: 36415; 71045; 80053; 80202; 81003; 82550; 82553; 83605; 84443; 84484; 85025; 87040; 87081; 87086; 93005; 93306; 94640; 94664; 94760; 96365; 96366; 96368; 99285; J7620

== ENCOUNTER 2020-10-02 16:10 | Inpatient (IN) | payer MEDICAID ==
[~2020-10-02] VITALS: Ht 172.7 cm; Wt 119.7 kg
[2020-10-02 16:10] VITALS: BP 139/81
[~2020-10-02 16:10] MED LIST changes: +CEPHALEXIN500 MG ORAL; +DOXYCYCLINE MO100 M2 PO
--- NOTE | 2020-10-02 16:23 | Emergency Room Report ---
History of Present Illness General Chief Complaint: Fever Source: EMS Present Illness HPI Disclaimer: Please note that this report is being documented using DRAGON technology. This can lead to erroneous entry secondary to incorrect interpretation by the dictating instrument. HPI: 65-year-old female presents from [facility] for evaluation of fever. She has a history of morbid obesity, strokes with functional quadriplegia, G-tube dependent feeding for dysphagia, schizophrenia, heart failure, anemia among others. According to EMS report the patient had a fever of 102 taken orally this morning at nursing facility. Cooling measures w ere performed but no medications were given. No reporting of cough vomiting or diarrhea according to EMS. Cannot obtain any information from patient. She denies pain or discomfort at this time. Patient has a DO NOT RESUSCITATE status according to latest POLST form. Tested negative for COVID-19 on 09/26. Recently received influenza vaccine. PMH: Morbid obesity, G-tube dependent feeding, CVA, schizophrenia, heart failure, anemia PSH: G-tube placement Allergies: Reviewed Social Hx: Reviewed Allergies: Coded Allergies: No Known Allergies (Unverified , 07/02/15) COVID-19 Screening Contact w/high risk pt: No Experienced COVID-19 symptoms?: Yes COVID-19 Testing performed ROSIN BARREL FILLER: Yes COVID-19 Screening: Negative COVID-19 COVID-19 Testing Source: 09/26/20 Nursing Documentation-PM Past Medical History: No History, Except For Hx Hypertension: Yes Hx Diabetes: Yes Hx Cancer: Yes - SKIN Hx Gastrointestinal Problems: Yes Hx Neurological Problems: Yes Hx Cerebrovascular Accident: Yes Hx Seizures: Yes Review of Systems All Other Systems: limited - Unable to obtain from patient due to mental status Physical Exam Vital Signs Date Time Temp Pulse Resp B/P (MAP) Pulse Ox O2 Delivery O2 Flow Rate FiO2 10/02/20 16:11 97.9 71 18 139/81 (100) 96 Room Air General: Awake, confused, no acute distress HEENT: NC/AT. EOMI. Cardiovascular: RRR. S1 and S2 normal. No murmur appreciated Resp: Normal work of breathing. No cough, wheezing or crackles appreciated Abdomen: Morbidly obese abdomen. Abdomen is soft, nondistended. Nontender. G- tube in appropriate position epigastrium Skin: Intact. No abrasions, laceration or rash over the exposed skin MSK: Normal tone and bulk. Moving all extremities. No obvious deformity. Neuro: Awake, confused conversation. Oriented to self. Can follow simple commands. Medical Decision Making Diagnostic Impression: Primary Impression: Fever of unknown origin Additional Impression: Lactic acidosis ER Course Is a 65-year-old female presenting for evaluation of fever at her nursing facility earlier today. She arrives afebrile in no acute distress but difficult to obtain additional information from patient. Recently tested negative for COVID-19 and received influenza vaccine for the year. Differential includes was not limited to viral syndrome, COVID-19 infection, pneumonia, bronchitis, urinary tract infection, bacteremia, sepsis among others. Vital signs are within normal limits and the patient is afebrile on arrival. EKG is nonischemic. Chest x-ray shows cardiomegaly but no infiltrate or signs of fluid overload. Lactate returned elevated at 3.1 and the patient is receiving a 30 cc/kg fluid bolus. Cultures were sent. Will cover empirically with antibiotics. Patient remains afebrile here with stable vital signs. Labs are otherwise within normal limits. No white count, no evidence of a urinary tract infection. Dr. Paul is the primary care provider and is being covered by Dr. Mitchell today who will admit the patient. Laboratory Tests Test 10/02/20 16:30 10/02/20 17:10 White Blood Count 10.3 K/UL (4.8-10.8) Red Blood Count 4.06 M/UL (4.20-5.40) L Hemoglobin 12.9 G/DL (12.0-16.0) Hematocrit 38.9 % (37.0-47.0) Mean Corpuscular Volume 96 FL (80-99) Mean Corpuscular Hemoglobin 31.6 PG (27.0-31.0) H Mean Corpuscular Hemoglobin Concent 33.0 G/DL (32.0-36.0) Red Cell Distribution Width 15.0 % (11.6-14.8) H Platelet Count 115 K/UL (150-450) L Mean Platelet Volume 8.9 FL (6.5-10.1) Neutrophils (%) (Auto) 64.5 % (45.0-75.0) Lymphocytes (%) (Auto) 27.0 % (20.0-45.0) Monocytes (%) (Auto) 7.5 % (1.0-10.0) Eosinophils (%) (Auto) 0.1 % (0.0-3.0) Basophils (%) (Auto) 0.8 % (0.0-2.0) Prothrombin Time 11.9 SEC (9.30-11.50) H Prothrombin Time INR 1.1 (0.9-1.1) Activated Partial Thromboplast Time 23 SEC (23-33) Sodium Level 140 MMOL/L (136-145) Potassium Level 4.4 MMOL/L (3.5-5.1) Chloride Level 106 MMOL/L (98-107) Carbon Dioxide Level 27 MMOL/L (21-32) Anion Gap 7 mmol/L (5-15) Blood Urea Nitrogen 38 mg/dL (7-18) H Creatinine 0.9 MG/DL (0.55-1.30) Estimated Glomerular Filtration Rate > 60 mL/min (>60) Glucose Level 102 MG/DL (74-106) Lactic Acid Level 3.10 mmol/L (0.4-2.0) H Calcium Level 9.0 MG/DL (8.5-10.1) Phosphorus Level 3.8 MG/DL (2.5-4.9) Magnesium Level 2.3 MG/DL (1.8-2.4) Total Bilirubin 1.0 MG/DL (0.2-1.0) Aspartate Amino Transferase (AST) 77 U/L (15-37) H Alanine Aminotransferase (ALT) 110 U/L (12-78) H Alkaline Phosphatase 84 U/L (46-116) Total Creatine Kinase 41 U/L (26-308) Creatine Kinase MB 0.5 NG/ML (0.0-3.6) Creatine Kinase MB Relative Index 1.2 Troponin I 0.005 ng/mL (0.000-0.056) Pro-B-Type Natriuretic Peptide 1661 pg/mL (0-125) H Total Protein 7.9 G/DL (6.4-8.2) Albumin 2.8 G/DL (3.4-5.0) L Globulin 5.1 g/dL Albumin/Globulin Ratio 0.5 (1.0-2.7) L Lipase 111 U/L (73-393) Urine Color Yellow Urine Appearance Clear Urine pH 5 (4.5-8.0) Urine Specific [place] 1.020 (1.005-1.035) Urine Protein Negative (NEGATIVE) Urine Glucose (UA) Negative (NEGATIVE) Urine Ketones 2+ (NEGATIVE) H Urine Blood Negative (NEGATIVE) Urine Nitrite Negative (NEGATIVE) Urine Bilirubin Negative (NEGATIVE) Urine Urobilinogen Normal MG/DL (0.0-1.0) Urine Leukocyte Esterase Negative (NEGATIVE) Microbiology Date/Time Source Procedure Growth Status 10/02/20 16:30 Nasopharynx SARS-CoV-2 RdRp Gene Assay - Final Complete EKG Diagnostic Results Troponin ordered: Yes When was troponin ordered?: Oct 02, 2020 EKG Time: 16:26 Rate: normal Rhythm: NSR ST Segments: no acute changes Other Impression Sinus rhythm, normal axis, normal intervals, QTC 4 3 4 ms, no ST segment changes Rhythm Strip Diag. Results Rhythm Strip Time: 16:26 EP Interpretation: yes Rate: 65 Rhythm: NSR, no PVC's, no ectopy Last Vital Signs Date Time Temp Pulse Resp B/P (MAP) Pulse Ox O2 Delivery O2 Flow Rate FiO2 10/02/20 16:11 97.9 71 18 139/81 (100) 96 Room Air Disposition: ADMITTED INPATIENT Condition: Stable Eliud Lombardi MD Oct 02, 2020 16:23
[2020-10-02] MEDS ORDERED: LIPITOR20 MG GT (16:45)
[2020-10-02] MEDS ORDERED: ALBUTEROL1.25 MG/3 HHN (16:45)
[2020-10-02] MEDS ORDERED: ZOFRAN ODT8 MG GT (16:45)
[2020-10-02] MEDS ORDERED: ACETAMINOPHEN325 M1 GT (16:45)
--- NOTE | 2020-10-02 16:57 | Diagnostic Imaging Report ---
Indication: Reason For Exam: SOB Technique: One view of the chest Comparison: 03/06/2019 Findings: Inspiration is suboptimal. Lungs and pleural spaces are clear. Heart size is normal. No significant change Impression: No acute process
[2020-10-02 17:09] LABS: BASOPHILS % (AUTO) 0.8 % (0.0-2.0); EOSINOPHILS % (AUTO) 0.1 % (0.0-3.0); HEMATOCRIT 38.9 % (37.0-47.0); HEMOGLOBIN 12.9 G/DL (12.0-16.0); MEAN CORPUSCULAR VOLUME 96 FL (80-99); MONOCYTES % (AUTO) 7.5 % (1.0-10.0); NEUTROPHILS % (AUTO) 64.5 % (45.0-75.0); PLATELET COUNT 115 K/UL (150-450); RED BLOOD COUNT 4.06 M/UL (4.20-5.40); WHITE BLOOD COUNT 10.3 K/UL (4.8-10.8)
[2020-10-02 17:10] VITALS: BP 138/76
[2020-10-02 17:26] LABS: INR 1.1 (0.9-1.1)
[2020-10-02 17:30] LABS: ANION GAP 7 mmol/L (5-15); BLOOD UREA NITROGEN 38 mg/dL (7-18); CARBON DIOXIDE 27 MMOL/L (21-32); CHLORIDE 106 MMOL/L (98-107); CREATININE 0.9 MG/DL (0.55-1.30); POTASSIUM 4.4 MMOL/L (3.5-5.1); SODIUM 140 MMOL/L (136-145)
[2020-10-02 17:44] LABS: ALANINE AMINOTRANSFERASE 110 U/L (12-78); ALBUMIN 2.8 G/DL (3.4-5.0); ALBUMIN/GLOBULIN RATIO 0.5 (1.0-2.7); ALKALINE PHOSPHATASE 84 U/L (46-116); ASPARTATE AMINO TRANSFERASE 77 U/L (15-37); CKMB 0.5 NG/ML (0.0-3.6); CREATINE KINASE 41 U/L (26-308); PHOSPHORUS 3.8 MG/DL (2.5-4.9)
[2020-10-02 17:47] LABS: APPEARANCE,URINE CLEAR; BILIRUBIN, URINE NEGATIVE (NEGATIVE); GLUCOSE, URINE (UA) NEGATIVE (NEGATIVE); KETONES,URINE 2+ (NEGATIVE); LEUKOCYTE ESTERASE ,URINE NEGATIVE (NEGATIVE); NITRITE,URINE NEGATIVE (NEGATIVE); PH,URINE 5 (4.5-8.0); PROTEIN,URINE NEGATIVE (NEGATIVE); UROBILINOGEN,URINE NORMAL MG/DL (0.0-1.0)
[2020-10-02 17:51] LABS: COLOR,URINE YELLOW
[2020-10-02 18:59] VITALS: BP 139/78
[2020-10-02] MEDS ORDERED: Piperacillin/Tazobactam 3.375 GM in NS 110 ML IVPB ONE (19:00)
[2020-10-02 22:13] VITALS: BP 131/75
[2020-10-02 22:25] VITALS: BP 127/63
[2020-10-02] MEDS ORDERED: dilTIAZem HCl 30mg tab GT SCH (22:45)
[2020-10-02] MEDS ORDERED: Milk of Magnesia 30ml Ud GT PRN (22:45)
[2020-10-02] MEDS ORDERED: Albuterol ud Inhalation HHN PRN (22:45)
[2020-10-02] MEDS ORDERED: Acetaminophen 650mg/20.3ml GT PRN (23:15)
[2020-10-02] MEDS: Depakote 125mg Sprinkles GT SCH (23:56)
[2020-10-03] VITALS: BP 137/74
[2020-10-03 04:00] VITALS: BP 159/75
[2020-10-03 07:09] LABS: BASOPHILS % (AUTO) 0.3 % (0.0-2.0); HEMATOCRIT 39.2 % (37.0-47.0); HEMOGLOBIN 13.1 G/DL (12.0-16.0); LYMPHOCYTES % (AUTO) 10.4 % (20.0-45.0); MEAN CORPUSCULAR VOLUME 95 FL (80-99); MONOCYTES % (AUTO) 4.5 % (1.0-10.0); NEUTROPHILS % (AUTO) 84.8 % (45.0-75.0); PLATELET COUNT 128 K/UL (150-450); RED BLOOD COUNT 4.13 M/UL (4.20-5.40); RED CELL DISTRIBUTION WIDTH 14.8 % (11.6-14.8)
[2020-10-03 07:29] LABS: ALANINE AMINOTRANSFERASE 99 U/L (12-78); ALBUMIN 2.7 G/DL (3.4-5.0); ALBUMIN/GLOBULIN RATIO 0.5 (1.0-2.7); ALKALINE PHOSPHATASE 80 U/L (46-116); ANION GAP 11 mmol/L (5-15); ASPARTATE AMINO TRANSFERASE 58 U/L (15-37); BILIRUBIN,TOTAL 1.1 MG/DL (0.2-1.0); BLOOD UREA NITROGEN 25 mg/dL (7-18); CALCIUM 8.5 MG/DL (8.5-10.1); CARBON DIOXIDE 21 MMOL/L (21-32); CHLORIDE 109 MMOL/L (98-107); CREATININE 0.7 MG/DL (0.55-1.30); POTASSIUM 3.9 MMOL/L (3.5-5.1); SODIUM 141 MMOL/L (136-145)
[2020-10-03 07:32] LABS: BILIRUBIN,DIRECT 0.3 MG/DL (0.0-0.3)
[2020-10-03 08:00] VITALS: BP 104/62
[2020-10-03] MEDS ORDERED: ALBUTEROL2.5 MG/3 M INH (09:07)
[2020-10-03] MEDS ORDERED: DILTIAZEM ER240 M3 GT (09:07)
[2020-10-03] MEDS: Vancomycin 1.25gm/250ml Premix IVPB SCH ×2 (09:25→21:06)
[2020-10-03] MEDS: QUEtiapine 200mg tab GT SCH ×2 (09:25→17:11)
[2020-10-03] MEDS: levETIRAcetam 500mg/5ml Liquid GT SCH ×2 (09:25→17:11)
[2020-10-03] MEDS: Multivitamins W/Minerals 15 ML UDC GT SCH (09:26)
[2020-10-03] MEDS: Depakote 125mg Sprinkles GT SCH ×2 (09:26→21:02)
[2020-10-03] MEDS ORDERED: INSULIN AS100 UNIT/2 SQ (09:36)
[2020-10-03] MEDS: Heparin 5000 units/ml inj SUBQ SCH ×2 (10:00→21:05)
--- NOTE | 2020-10-03 10:25 | Diagnostic Imaging Report ---
Indication: Reason For Exam: WEAK Technique: Grayscale and duplex images of the bilateral lower extremity veins Comparison: Bilateral lower extremity edema and pain Findings: Exam is somewhat technically limited due to patient body habitus. Bilaterally, grayscale and duplex images demonstrate no evidence of intraluminal thrombus. Normal phasic Doppler waveforms, demonstrating normal augmentation response and no evidence of valvular insufficiency. Greater saphenous vein(s) and tibial veins are patent. Normal compressibility. Impression: Negative for evidence of lower extremity deep venous thrombosis bilaterally
[2020-10-03 11:58] VITALS: BP 144/92
--- NOTE | 2020-10-03 13:15 | Consultation ---
DATE OF CONSULTATION: 10/03/2020 INFECTIOUS DISEASE CONSULTATION CONSULTING PHYSICIAN: Luis Dimas MD. REFERRING PHYSICIAN: Agapito Mitchell MD. REASON FOR CONSULTATION: Fever. HISTORY OF PRESENTING ILLNESS: This is a 65-year-old lady with history of obesity, CVA, schizophrenia, and heart failure, who came in from a [facility] facility with fever. There was a concern for bacteremia and an Infectious Diseases consultation has been obtained for antibiotics. PAST MEDICAL HISTORY: 1. History of diabetes. 2. Hypertension. 3. History of skin cancer. 4. CVA. 5. Seizures. 6. Obesity. 7. History of G-tube placement for dysphagia. 8. Schizophrenia. 9. Heart failure. 10. Anemia. SOCIAL HISTORY: Unknown. FAMILY HISTORY: Unknown. REVIEW OF SYSTEMS: Unable to obtain currently. MEDICATIONS: As an inpatient, she is on atorvastatin, subcutaneous heparin, IV vancomycin, Seroquel, multivitamin, Keppra, Depakote, metoprolol, Tylenol, milk of magnesia, diltiazem, and albuterol. ALLERGIES: No known drug allergies. PHYSICAL EXAMINATION: VITAL SIGNS: Temperature 99.7, T-max of 99.7, pulse 77, respiratory rate 20, blood pressure 104/62. O2 saturation of 95%. HEENT: Pupils are equally reactive to light and accommodation. Mouth appears clean without thrush. NECK: Supple. No adenopathy. No JVD. CARDIOVASCULAR: Regular rate and rhythm. No murmurs. LUNGS: Clear to auscultation bilaterally. No crackles. No wheezes. ABDOMEN: Soft, nontender. G-tube site appears clean. EXTREMITIES: No cyanosis. No clubbing. Edema noted bilaterally. LABORATORY AND DIAGNOSTIC DATA: White count of 10, hemoglobin 13.1, hematocrit 39.2, MCV 95, platelet count of 128 with neutrophils of 84%. Sodium 141, potassium 3.9, chloride 109, bicarb 21, BUN 25, creatinine 0.7. Glucose 132. Calcium of 8.5. Total bilirubin 1.1, direct bilirubin 0.3, AST 58, ALT 99, alkaline phosphatase 80. Total protein 7.9, albumin 2.7. Lactic acid of 2. Lipase of 111. Beta-natriuretic peptide 1661. Troponin 0.005. CK of 41, CK-MB of 0.5. UA is negative. Blood cultures from 10/02/2020, showing gram-positive cocci in clusters. COVID-19 test is negative. Chest x-ray is showing no acute process. Ultrasound of legs showed no evidence of DVT. ASSESSMENT: This is a 65-year-old lady with history of diabetes, hypertension, schizophrenia, CVA, skin cancer, and obesity who comes in with fevers and is found to have, 1. Gram-positive sepsis. Would like to rule out endocarditis as a possibility. 2. Diabetes. 3. Hypertension. 4. CVA. 5. Obesity. PLAN: 1. Continue IV vancomycin. 2. We will order a 2D echocardiogram. 3. We will follow up cultures and adjust antibiotics accordingly. I would like to thank Dr. Agapito Mitchell for this consultation. Luis Dimas M.D. DR: CARLOTA JOB#: [id number] CC:
[2020-10-03] MEDS: dilTIAZem HCl 60mg tab GT SCH ×2 (14:00→17:12)
--- NOTE | 2020-10-03 14:21 | History & Physical ---
History and Physical History & Physicial [id number] Agapito Mitchell MD Oct 03, 2020 14:21
--- NOTE | 2020-10-03 15:44 | History and Physical Report ---
DATE OF ADMISSION: 10/02/2020 REASON OF ADMISSION: High-grade fever. HISTORY OF PRESENT ILLNESS: This is a very pleasant 65-year-old white female with a history of schizophrenia, who has been a resident of a [facility] under the care of Dr. Brett Paul whom I am covering for. She has been in her usual state of health until October 02, 2020 when she was found to have a temperature of 102 degrees Fahrenheit, and she was somewhat more lethargic than usual and subsequently has been brought to the emergency room of [facility] for further evaluation. In the emergency room, obviously, they did not examine her accurately and I was told that she had a fever of unknown origin. However, by examination, it seems that she has some decubitus ulcers on the toes and on the heel. The foot is with some redness going up to the calf, and she was given some Zosyn in the emergency room. Blood cultures were drawn and blood culture is growing gram-positive cocci in cluster. She is very lethargic, is not able to give me a very fruitful history at this point. Her white count was not elevated either. Her chest x-ray did not show any signs of infiltrate. Urinalysis was also very clean, no pyuria. PAST MEDICAL HISTORY: Significant for type 2 diabetes mellitus, morbid obesity, hypertension, history of skin cancer, CVA, seizure, obesity, schizophrenia, dysphagia, status post G-tube placement, paroxysmal atrial fibrillation, and previous episodes of congestive heart failure as well as anemia. PAST SURGICAL HISTORY: Status post G-tube placement. SOCIAL HISTORY: She is a resident of a [facility]. She apparently has been a former smoker. FAMILY HISTORY: None known. REVIEW OF SYSTEMS: Impossible to obtain since she is not able to give me a very fruitful history. CURRENT MEDICATIONS: 1. Albuterol nebulizer q.6h. p.r.n. 2. Lipitor 20 mg p.o. daily. 3. Cranberry 450 mg q.8h. per G-tube. 4. Diltiazem 240 mg per G-tube daily. 5. Keppra 750 mg per G-tube b.i.d. 6. Lisinopril 20 mg per G-tube daily. 7. Magnesium hydroxide 400 mg per G-tube p.r.n. 8. Multivitamin per G-tube daily. 9. Zofran 8 mg per G-tube t.i.d. p.r.n. 10. Seroquel 100 mg per G-tube b.i.d. 11. Valproic acid 250 mg per G-tube b.i.d. 12. She also is getting tube feeding with Glucerna 1.2, 80 mL/hour x20 hours daily. PHYSICAL EXAMINATION: GENERAL: This is a morbidly obese female, does not seem to be in much acute distress, lying down in bed flat. VITAL SIGNS: Blood pressure is 142/92, pulse of 78, respirations 20, temperature 99 degrees Fahrenheit. HEENT: Head is atraumatic. Eyes, pupils reactive to light. No evidence of papilledema. Ears canals are clear. Tympanic membranes are intact. Nose are patent without any nasal discharge. Throat without inflammation or exudate. NECK: Supple. Jugular venous distention is within normal limits. No cervical adenopathies. No thyromegaly. HEART: Regular rhythm. No gallop. LUNGS: Decreased air excursion bilaterally. ABDOMEN: Supple. Bowel sounds positive. No hepatosplenomegaly. No CVA tenderness. EXTREMITIES: Lower extremities show no cyanosis or clubbing. No pedal edema. She has some sores on the heels of the feet and also in between the toes with some redness, which is extending into the mid calf. NEUROLOGICAL: She is very lethargic. No focal neurological deficit present. LABORATORY DATA: Sodium 141, potassium 3.9, chloride 109, carbon dioxide 21, BUN is 25, creatinine 0.7, glucose 132, total bilirubin 1.1. LFTs show AST of 58 and ALT of 99. WBC is 10, hemoglobin is 13.1, hematocrit 39.2, and platelets of 128. IMPRESSION: 1. Fever, most likely secondary to underlying sepsis. 2. She most likely has gram-positive sepsis, most likely due to the cellulitis of the lower extremities due to the decubitus ulcers. However, underlying endocarditis needs to be ruled out. 3. She seems to be close to euvolemia at this point. She has received some IV fluids overnight. 4. Morbid obesity. PLAN: She was given IV vancomycin. We will continue. We will get infectious disease consult. A 2D echo is in order and we will also get a podiatry consult since she is very obese and she is sedentary at this point. We are going to initiate heparin 5000 units subcutaneously q.12h. for DVT and PE prophylaxes. Agapito Mitchell M.D. DR: SHIELA JOB#: [id number] CC:
[2020-10-03 16:00] VITALS: BP 114/55
[2020-10-03 20:00] VITALS: BP 110/58
[2020-10-03] MEDS: Atorvastatin 20mg tab GT SCH (21:03)
[2020-10-04] VITALS (7 sets, daily range): BP systolic 100–168; BP diastolic 50–72
[2020-10-04] MEDS: dilTIAZem HCl 60mg tab GT SCH ×4 (06:00→17:42)
[2020-10-04] MEDS: QUEtiapine 200mg tab GT SCH ×2 (09:52→17:42)
[2020-10-04] MEDS: levETIRAcetam 500mg/5ml Liquid GT SCH ×2 (09:53→17:42)
[2020-10-04] MEDS: Depakote 125mg Sprinkles GT SCH ×2 (09:54→21:34)
[2020-10-04] MEDS: Multivitamins W/Minerals 15 ML UDC GT SCH (09:54)
[2020-10-04] MEDS: Vancomycin 1.25gm/250ml Premix IVPB SCH ×2 (09:57→21:34)
[2020-10-04] MEDS: Heparin 5000 units/ml inj SUBQ SCH ×2 (09:59→21:33)
--- NOTE | 2020-10-04 13:02 | Infectious Diseases Prog Note ---
Assessment/Plan Assessment/Plan A; 1. Fever, ? cellulitis 2. Diabetes. 3. Hypertension. 4. CVA. 5. Obesity. 6. Positive blood culture with Coag neg staph PLAN: 1. Continue IV vancomycin. 2. We will f/u 2D echocardiogram. 3. We will follow up cultures and adjust antibiotics accordingly. Subjective ROS Limited/Unobtainable: Yes Constitutional: Denies: fever Respiratory: Reports: no symptoms Allergies: Coded Allergies: No Known Allergies (Unverified , 07/02/15) Objective Last 24 Hour Vital Signs Date Time Temp Pulse Resp B/P (MAP) Pulse Ox O2 Delivery O2 Flow Rate FiO2 10/04/20 12:00 68 140/71 10/04/20 09:54 79 125/56 10/04/20 08:00 97.7 79 18 125/56 (79) 98 10/04/20 06:00 61 100/50 10/04/20 04:00 98.2 69 16 100/50 (67) 95 10/04/20 04:00 68 10/04/20 00:01 97.9 84 20 136/70 (92) 94 10/04/20 00:00 81 174/72 10/04/20 00:00 75 10/03/20 21:05 Room Air 10/03/20 20:53 60 108/56 10/03/20 20:09 65 20 94 Room Air 21 10/03/20 20:00 98.8 63 20 110/58 (75) 94 10/03/20 20:00 66 10/03/20 17:12 71 114/55 10/03/20 16:00 99.5 71 20 114/55 (74) 94 10/03/20 15:50 70 10/03/20 14:00 75 144/92 Height (Feet): 5 Height (Inches): 8.00 Weight (Pounds): 264 General Appearance: no acute distress HEENT: mucous membranes moist Respiratory/Chest: lungs clear Cardiovascular: normal rate Abdomen: soft, non tender Extremities: other - legs edema Skin: ulcers Neurologic/Psychiatric: alert, responsive Microbiology Date/Time Source Procedure Growth Status 10/02/20 16:30 Rectum VRE Culture - Final NO VANCOMYCIN RESISTANT ENTEROCOCCUS ... Complete 10/02/20 16:30 Nasal Nares MRSA Culture - Final NO METHICILLIN RESISTANT STAPH AUREUS... Complete 10/02/20 16:30 Nasopharynx SARS-CoV-2 RdRp Gene Assay - Final Complete 10/02/20 16:30 Blood Blood Culture - Preliminary Staphylococcus Sp Coag Neg Resulted 10/02/20 16:00 Blood Blood Culture - Preliminary Staphylococcus Sp Coag Neg Resulted Current Medications Medications (Trade) Dose Ordered Sig/Leonidas Route PRN Reason Start Time Stop Time Status Last Admin Dose Admin Acetaminophen (Tylenol) 650 mg Q6H PRN GT For Pain 10/02/20 23:15 11/01/20 23:14 Albuterol Sulfate (Proventil) 2.5 mg Q6H PRN HHN Shortness of Breath 10/02/20 22:45 10/07/20 22:44 Atorvastatin Calcium (Lipitor) 20 mg BEDTIME GT 10/03/20 21:00 01/01/21 20:59 10/03/20 21:03 Dextrose (Dextrose 50%) 25 ml Q30M PRN IV Hypoglycemia 10/02/20 23:00 12/31/20 22:59 Dextrose (Dextrose 50%) 50 ml Q30M PRN IV Hypoglycemia 10/02/20 23:00 12/31/20 22:59 Diltiazem HCl (Cardizem Tab) 60 mg Q6HR GT 10/03/20 13:00 11/02/20 12:59 10/04/20 12:00 Divalproex Sodium (Depakote Sprinkles) 250 mg Q12HR GT 10/02/20 23:30 11/16/20 23:29 10/04/20 09:54 Heparin Sodium (Porcine) (Heparin 5000 units/ml) 5,000 units EVERY 12 HOURS SUBQ 10/03/20 10:00 11/17/20 09:59 10/04/20 09:59 Levetiracetam (Keppra) 750 mg TWICE A DAY GT 10/03/20 09:00 11/17/20 08:59 10/04/20 09:53 Magnesium Hydroxide (Mom) 30 ml DAILY PRN GT Constipation 10/02/20 22:45 11/01/20 22:44 Metoprolol Tartrate (Lopressor) 25 mg EVERY 12 HOURS GT 10/02/20 23:15 12/31/20 23:14 10/04/20 09:54 Multivitamins (Multivitamins W/ Minerals 15ml Liquid) 15 ml DAILY GT 10/03/20 09:00 11/02/20 08:59 10/04/20 09:54 Quetiapine Fumarate (SEROqueL) 200 mg TWICE A DAY GT 10/03/20 09:00 11/17/20 08:59 10/04/20 09:52 Vancomycin HCl 250 ml @ 166.667 mls/hr Q12HR IVPB 10/03/20 09:00 10/08/20 08:59 10/04/20 09:57 Vancomycin HCl (Vanco pharmacy to dose) 1 ea DAILY PRN MISC Per rx protocol 10/03/20 06:15 11/02/20 06:14 Dayton Sosa MD Oct 04, 2020 13:02
--- NOTE | 2020-10-04 17:23 | Consultation ---
History of Present Illness General Date patient seen: Oct 04, 2020 Time patient seen: 09:30 Chief Complaint: Fever Reason for Consultation: L foot Cellulitis. Present Illness HPI Pt seen for L foot cellulitis. Pt appears NAD, resting at bedside. Pt relates minimal pain to B/L L/E. Allergies: Coded Allergies: No Known Allergies (Unverified , 07/02/15) Medication History Scheduled Atorvastatin Calcium* (Lipitor*), 20 MG GT BEDTIME, (Reported) Cranberry Fruit (Cranberry), 450 MG GT Q8HR, (Reported) Diltiazem HCl (Diltiazem ER), 240 MG GT DAILY, (Reported) Levetiracetam (Keppra), 7.5 ML GT TWICE A DAY, (Reported) Lisinopril* (Zestril*), 20 MG GT DAILY, (Reported) Metoprolol Tartrate (Metoprolol Tartrate), 25 MG GT EVERY 12 HOURS, (Reported) Multivitamin With Minerals (Multivitamins With Minerals*), 1 TAB GT DAILY, (Reported) Quetiapine Fumarate* (Seroquel*), 200 MG GT TWICE A DAY, (Reported) Valproate Sodium (Valproic Acid), 250 MG GT Q12HR, (Reported) Scheduled PRN Acetaminophen* (Acetaminophen 325MG Tablet*), 650 MG GT Q6H PRN for For Pain, (Reported) Albuterol Sulfate* (Albuterol Sulfate Hhn*), 3 ML INH Q6H PRN for Shortness of Breath, (Reported) Albuterol Sulfate* (Albuterol Sulfate Hhn*), 3 ML INH Q4H PRN for CHEST CONGESTION, (Reported) Insulin Aspart (Insulin Aspart), 100 UNIT SQ 3XW PRN for SLIDING SCALE, (Reported) Magnesium Hydroxide* (Milk Of Magnesia*), 30 ML GT DAILY PRN for Constipation, (Reported) Ondansetron Odt* (Zofran Odt*), 8 MG GT THREE TIMES A DAY PRN for Nausea & Vomiting, (Reported) Discontinued Medications Acetaminophen* (Acetaminophen*), 650 MG GT DAILY, (Reported) Discontinued Reason: Pt stopped taking med Albuterol Sulfate (Albuterol Sulfate), 2.5 MG HHN Q6HR, (Reported) Discontinued Reason: Prescription changed Amino Acids/Protein Hydrolys (Pro-Stat Liquid), 30 ML GT TWICE A DAY, (Reported) Discontinued Reason: Pt stopped taking med Cephalexin* (Keflex*), 500 MG ORAL EVERY 6 HOURS Discontinued Reason: Therapy completed Diltiazem HCl (Diltiazem 12Hr ER), 240 MG GT EVERY 8 HOURS, (Reported) Discontinued Reason: Prescription changed Doxycycline Monohydrate (Doxycycline Monohydrate), 100 MG PO BID Discontinued Reason: Therapy completed Glucagon,Human Recombinant (Glucagon Emergency Kit), 1 MG IJ DAILY PRN for H ypoglycemia, (Reported) Discontinued Reason: Pt stopped taking med [novolog insulin ss], (Reported) Discontinued Reason: Prescription changed Patient History Healthcare decision maker Resuscitation status Advanced Directive on File Physical Exam Physical Exam Narrative Focused B/L L/E Exam Derm: L foot: eschar noted distal Hallux and third digit. (+) Erythema and edema. R foot: erythema and edema noted distal Hallux and second digit. Vasc: +1/4 DP/PT pulses. Neuro: SILT diminished. MSK: MS/ROM diminished Last 24 Hour Vital Signs Date Time Temp Pulse Resp B/P (MAP) Pulse Ox O2 Delivery O2 Flow Rate FiO2 10/04/20 12:00 97.7 68 18 140/71 (94) 95 10/04/20 12:00 68 140/71 10/04/20 12:00 58 10/04/20 09:54 79 125/56 10/04/20 09:00 Room Air 10/04/20 08:00 97.7 79 18 125/56 (79) 98 10/04/20 08:00 57 10/04/20 06:00 61 100/50 10/04/20 04:00 98.2 69 16 100/50 (67) 95 10/04/20 04:00 68 10/04/20 00:01 97.9 84 20 136/70 (92) 94 10/04/20 00:00 81 174/72 10/04/20 00:00 75 10/03/20 21:05 Room Air 10/03/20 20:53 60 108/56 10/03/20 20:09 65 20 94 Room Air 21 10/03/20 20:00 98.8 63 20 110/58 (75) 94 10/03/20 20:00 66 Intake and Output 10/03/20 10/04/20 19:00 07:00 Intake Total 1053.334 ml Output Total 600 ml Balance 453.334 ml Intake Free Water 60 ml IV Total 933.334 ml Tube Feeding 60 ml Output Urine Total 600 ml # Bowel Movements 1 1 Height (Feet): 5 Height (Inches): 8.00 Weight (Pounds): 264 Medications Current Medications Medications (Trade) Dose Ordered Sig/Leonidas Route PRN Reason Start Time Stop Time Status Last Admin Dose Admin Acetaminophen (Tylenol) 650 mg Q6H PRN GT For Pain 10/02/20 23:15 11/01/20 23:14 Albuterol Sulfate (Proventil) 2.5 mg Q6H PRN HHN Shortness of Breath 10/02/20 22:45 10/07/20 22:44 Atorvastatin Calcium (Lipitor) 20 mg BEDTIME GT 10/03/20 21:00 01/01/21 20:59 10/03/20 21:03 Dextrose (Dextrose 50%) 25 ml Q30M PRN IV Hypoglycemia 10/02/20 23:00 12/31/20 22:59 Dextrose (Dextrose 50%) 50 ml Q30M PRN IV Hypoglycemia 10/02/20 23:00 12/31/20 22:59 Diltiazem HCl (Cardizem Tab) 60 mg Q6HR GT 10/03/20 13:00 11/02/20 12:59 10/04/20 12:00 Divalproex Sodium (Depakote Sprinkles) 250 mg Q12HR GT 10/02/20 23:30 11/16/20 23:29 10/04/20 09:54 Heparin Sodium (Porcine) (Heparin 5000 units/ml) 5,000 units EVERY 12 HOURS SUBQ 10/03/20 10:00 11/17/20 09:59 10/04/20 09:59 Levetiracetam (Keppra) 750 mg TWICE A DAY GT 10/03/20 09:00 11/17/20 08:59 10/04/20 09:53 Magnesium Hydroxide (Mom) 30 ml DAILY PRN GT Constipation 10/02/20 22:45 11/01/20 22:44 Metoprolol Tartrate (Lopressor) 25 mg EVERY 12 HOURS GT 10/02/20 23:15 12/31/20 23:14 10/04/20 09:54 Multivitamins (Multivitamins W/ Minerals 15ml Liquid) 15 ml DAILY GT 10/03/20 09:00 11/02/20 08:59 10/04/20 09:54 Quetiapine Fumarate (SEROqueL) 200 mg TWICE A DAY GT 10/03/20 09:00 11/17/20 08:59 10/04/20 09:52 Vancomycin HCl 250 ml @ 166.667 mls/hr Q12HR IVPB 10/03/20 09:00 10/08/20 08:59 10/04/20 09:57 Vancomycin HCl (Vanco pharmacy to dose) 1 ea DAILY PRN MISC Per rx protocol 10/03/20 06:15 11/02/20 06:14 Assessment/Plan Assessment/Plan: - L foot cellulitis. - DM - HTN - CVA - Obesity. - Heart Failure. - Schizo Diagnosis [place] I: - Pt seen and evaluated. - Labs and chart reviewed. - B/L L/E MRI w/o contrast ordered. - Arterial U/S B/L L/E ordered, R/O PVD. - Cont IV ABx. - Off-loading measures to B/L L/E. - Daily betadine dressing B/L L/E. - Will await MRI results B/L L/E. - Cont Tx per specialists. - Podiatry will cont to monitor. Jerome Mcguire DPM Oct 04, 2020 17:23
--- NOTE | 2020-10-04 20:07 | General Progress Note ---
Subjective Allergies: Coded Allergies: No Known Allergies (Unverified , 07/02/15) Subjective She seems to be more alert , no c/p or sob , the feet redness is better Objective Last 24 Hour Vital Signs Date Time Temp Pulse Resp B/P (MAP) Pulse Ox O2 Delivery O2 Flow Rate FiO2 10/04/20 17:42 68 131/63 10/04/20 16:00 68 10/04/20 16:00 97.9 68 18 131/63 (85) 98 10/04/20 12:00 97.7 68 18 140/71 (94) 95 10/04/20 12:00 68 140/71 10/04/20 12:00 58 10/04/20 09:54 79 125/56 10/04/20 09:00 Room Air 10/04/20 08:18 74 18 96 Room Air 21 10/04/20 08:00 97.7 79 18 125/56 (79) 98 10/04/20 08:00 57 10/04/20 06:00 61 100/50 10/04/20 04:00 98.2 69 16 100/50 (67) 95 10/04/20 04:00 68 10/04/20 00:01 97.9 84 20 136/70 (92) 94 10/04/20 00:00 81 174/72 10/04/20 00:00 75 10/03/20 21:05 Room Air 10/03/20 20:53 60 108/56 10/03/20 20:09 65 20 94 Room Air 21 Intake and Output 10/03/20 10/04/20 19:00 07:00 Intake Total 1053.334 ml Output Total 600 ml Balance 453.334 ml Intake Free Water 60 ml IV Total 933.334 ml Tube Feeding 60 ml Output Urine Total 600 ml # Bowel Movements 1 1 Height (Feet): 5 Height (Inches): 8.00 Weight (Pounds): 264 General Appearance: WD/WN, no apparent distress EENT: PERRL/EOMI Neck: non-tender Cardiovascular: normal rate, regular rhythm, no JVD Respiratory/Chest: chest wall non-tender, lungs clear Abdomen: normal bowel sounds, non tender Extremities: non-tender Assessment/Plan Assessment/Plan: 1) Cellulitis of the LEs better 2) Sepsis is better 3) Schizophrenia Plan: ATB per ID Labs in AM Agapito Mitchell MD Oct 04, 2020 20:07
[2020-10-04] MEDS: Atorvastatin 20mg tab GT SCH (21:32)
[2020-10-05] VITALS: BP 132/58
[2020-10-05] MEDS: dilTIAZem HCl 60mg tab GT SCH ×4 (01:06→17:59)
[2020-10-05 04:02] VITALS: BP 114/54
[2020-10-05 06:46] LABS: HEMATOCRIT 37.4 % (37.0-47.0); HEMOGLOBIN 12.1 G/DL (12.0-16.0); MEAN CORPUSCULAR VOLUME 99 FL (80-99); PLATELET COUNT 116 K/UL (150-450); RED BLOOD COUNT 3.79 M/UL (4.20-5.40); RED CELL DISTRIBUTION WIDTH 14.6 % (11.6-14.8); WHITE BLOOD COUNT 3.2 K/UL (4.8-10.8)
[2020-10-05 07:12] LABS: ALANINE AMINOTRANSFERASE 89 U/L (12-78); ALBUMIN 2.3 G/DL (3.4-5.0); ALBUMIN/GLOBULIN RATIO 0.5 (1.0-2.7); ALKALINE PHOSPHATASE 72 U/L (46-116); ANION GAP 8 mmol/L (5-15); ASPARTATE AMINO TRANSFERASE 72 U/L (15-37); BILIRUBIN,TOTAL 0.5 MG/DL (0.2-1.0); BLOOD UREA NITROGEN 25 mg/dL (7-18); CALCIUM 8.6 MG/DL (8.5-10.1); CARBON DIOXIDE 24 MMOL/L (21-32); CHLORIDE 111 MMOL/L (98-107); CREATININE 0.7 MG/DL (0.55-1.30); POTASSIUM 3.8 MMOL/L (3.5-5.1); SODIUM 143 MMOL/L (136-145)
[2020-10-05 08:00] VITALS: BP 152/66
[2020-10-05] MEDS: Multivitamins W/Minerals 15 ML UDC GT SCH (08:42)
[2020-10-05] MEDS: Vancomycin 1.25gm/250ml Premix IVPB SCH (08:42)
[2020-10-05] MEDS: Depakote 125mg Sprinkles GT SCH ×2 (08:42→21:43)
[2020-10-05] MEDS: levETIRAcetam 500mg/5ml Liquid GT SCH ×2 (08:43→17:59)
[2020-10-05] MEDS: QUEtiapine 200mg tab GT SCH ×2 (08:43→17:59)
[2020-10-05] MEDS: Heparin 5000 units/ml inj SUBQ SCH ×2 (08:44→21:45)
--- NOTE | 2020-10-05 11:09 | Infectious Diseases Prog Note ---
Assessment/Plan Assessment/Plan antibiotics : vancomycin iv A 1. right thigh cellulitis 2. + blood cultures with coag neg staph likely contaminated 3. diabetes mellitus 4. hypertension 5. schizophrenia 6. CVA P 1. continue iv vancomycin 4 more days 2. will follow up cultures Subjective ROS Limited/Unobtainable: Yes Allergies: Coded Allergies: No Known Allergies (Unverified , 07/02/15) Objective Last 24 Hour Vital Signs Date Time Temp Pulse Resp B/P (MAP) Pulse Ox O2 Delivery O2 Flow Rate FiO2 10/05/20 09:00 Room Air 10/05/20 08:43 99 152/66 10/05/20 08:00 97.5 99 18 152/66 (94) 100 10/05/20 08:00 65 10/05/20 05:45 68 114/54 10/05/20 04:02 98.1 68 16 114/54 (74) 96 10/05/20 04:00 63 10/05/20 01:06 61 132/58 10/05/20 00:00 61 10/05/20 00:00 98.1 63 16 132/58 (82) 93 10/04/20 21:34 74 126/53 10/04/20 21:00 Room Air 10/04/20 21:00 Room Air 10/04/20 20:00 67 10/04/20 20:00 97.9 74 18 126/53 (77) 96 10/04/20 17:42 68 131/63 10/04/20 16:00 68 10/04/20 16:00 97.9 68 18 131/63 (85) 98 10/04/20 12:00 97.7 68 18 140/71 (94) 95 10/04/20 12:00 68 140/71 10/04/20 12:00 58 Height (Feet): 5 Height (Inches): 8.00 Weight (Pounds): 264 Respiratory/Chest: lungs clear Cardiovascular: normal rate, regular rhythm, no gallop/murmur Abdomen: soft, non tender, other - GT Extremities: other - + edema, right thigh erythema Microbiology Date/Time Source Procedure Growth Status 10/02/20 16:30 Rectum VRE Culture - Final NO VANCOMYCIN RESISTANT ENTEROCOCCUS ... Complete 10/02/20 16:30 Nasal Nares MRSA Culture - Final NO METHICILLIN RESISTANT STAPH AUREUS... Complete 10/02/20 16:30 Nasopharynx SARS-CoV-2 RdRp Gene Assay - Final Complete 10/02/20 16:30 Blood Blood Culture - Final Staphylococcus Sp Coag Neg Complete 10/02/20 16:00 Blood Blood Culture - Final Staphylococcus Capitis Complete Laboratory Tests Test 10/04/20 20:15 10/05/20 05:20 Vancomycin Level Trough 19.2 ug/mL (5.0-12.0) H White Blood Count 3.2 K/UL (4.8-10.8) L Red Blood Count 3.79 M/UL (4.20-5.40) L Hemoglobin 12.1 G/DL (12.0-16.0) Hematocrit 37.4 % (37.0-47.0) Mean Corpuscular Volume 99 FL (80-99) Mean Corpuscular Hemoglobin 31.8 PG (27.0-31.0) H Mean Corpuscular Hemoglobin Concent 32.2 G/DL (32.0-36.0) Red Cell Distribution Width 14.6 % (11.6-14.8) Platelet Count 116 K/UL (150-450) L Mean Platelet Volume 9.1 FL (6.5-10.1) Neutrophils (%) (Auto) % (45.0-75.0) Lymphocytes (%) (Auto) % (20.0-45.0) Monocytes (%) (Auto) % (1.0-10.0) Eosinophils (%) (Auto) % (0.0-3.0) Basophils (%) (Auto) % (0.0-2.0) Differential Total Cells Counted 100 Neutrophils % (Manual) 41 % (45-75) L Lymphocytes % (Manual) 39 % (20-45) Monocytes % (Manual) 18 % (1-10) H Eosinophils % (Manual) 2 % (0-3) Basophils % (Manual) 0 % (0-2) Band Neutrophils 0 % (0-8) Platelet Estimate Decreased L Platelet Morphology Normal Anisocytosis 1+ Sodium Level 143 MMOL/L (136-145) Potassium Level 3.8 MMOL/L (3.5-5.1) Chloride Level 111 MMOL/L (98-107) H Carbon Dioxide Level 24 MMOL/L (21-32) Anion Gap 8 mmol/L (5-15) Blood Urea Nitrogen 25 mg/dL (7-18) H Creatinine 0.7 MG/DL (0.55-1.30) Estimat Glomerular Filtration Rate > 60 mL/min (>60) Glucose Level 112 MG/DL (74-106) H Calcium Level 8.6 MG/DL (8.5-10.1) Total Bilirubin 0.5 MG/DL (0.2-1.0) Aspartate Amino Transf (AST/SGOT) 72 U/L (15-37) H Alanine Aminotransferase (ALT/SGPT) 89 U/L (12-78) H Alkaline Phosphatase 72 U/L (46-116) Total Protein 7.1 G/DL (6.4-8.2) Albumin 2.3 G/DL (3.4-5.0) L Globulin 4.8 g/dL Albumin/Globulin Ratio 0.5 (1.0-2.7) L Current Medications Medications (Trade) Dose Ordered Sig/Leonidas Route PRN Reason Start Time Stop Time Status Last Admin Dose Admin Acetaminophen (Tylenol) 650 mg Q6H PRN GT For Pain 10/02/20 23:15 11/01/20 23:14 Albuterol Sulfate (Proventil) 2.5 mg Q6H PRN HHN Shortness of Breath 10/02/20 22:45 10/07/20 22:44 Atorvastatin Calcium (Lipitor) 20 mg BEDTIME GT 10/03/20 21:00 01/01/21 20:59 10/04/20 21:32 Dextrose (Dextrose 50%) 25 ml Q30M PRN IV Hypoglycemia 10/02/20 23:00 12/31/20 22:59 Dextrose (Dextrose 50%) 50 ml Q30M PRN IV Hypoglycemia 10/02/20 23:00 12/31/20 22:59 Diltiazem HCl (Cardizem Tab) 60 mg Q6HR GT 10/03/20 13:00 11/02/20 12:59 10/05/20 05:45 Divalproex Sodium (Depakote Sprinkles) 250 mg Q12HR GT 10/02/20 23:30 11/16/20 23:29 10/05/20 08:42 Heparin Sodium (Porcine) (Heparin 5000 units/ml) 5,000 units EVERY 12 HOURS SUBQ 10/03/20 10:00 12/21/20 09:59 10/05/20 08:44 Levetiracetam (Keppra) 750 mg TWICE A DAY GT 10/03/20 09:00 11/17/20 08:59 10/05/20 08:43 Magnesium Hydroxide (Mom) 30 ml DAILY PRN GT Constipation 10/02/20 22:45 11/01/20 22:44 Metoprolol Tartrate (Lopressor) 25 mg EVERY 12 HOURS GT 10/02/20 23:15 12/31/20 23:14 10/05/20 08:43 Multivitamins (Multivitamins W/ Minerals 15ml Liquid) 15 ml DAILY GT 10/03/20 09:00 11/02/20 08:59 10/05/20 08:42 Quetiapine Fumarate (SEROqueL) 200 mg TWICE A DAY GT 10/03/20 09:00 11/17/20 08:59 10/05/20 08:43 Vancomycin HCl 250 ml @ 166.667 mls/hr Q12HR IVPB 10/03/20 09:00 10/08/20 08:59 10/05/20 08:42 Vancomycin HCl (Vanco pharmacy to dose) 1 ea DAILY PRN MISC Per rx protocol 10/03/20 06:15 11/02/20 06:14 Luis Dimas MD Oct 05, 2020 11:08
[2020-10-05 12:00] VITALS: BP 165/74
--- NOTE | 2020-10-05 14:15 | Cardiology Report ---
APPROVED REPORT EXAM: Two-dimensional and M-mode echocardiogram with Doppler and color Doppler. INDICATION Endocarditis M-Mode DIMENSIONS IVSd1.2 (0.7-1.1cm)Left Atrium (MM)4.9 (1.6-4.0cm) LVDd5.2 (3.5-5.6cm)Aortic Root3.2 (2.0-3.7cm) PWd1.2 (0.7-1.1cm)Aortic Cusp Exc.1.6 (1.5-2.0cm) IVSs2.6 cmEPSS1.0 (>1.0cm) LVDs2.9 (2.5-4.0cm) PWs1.6 cm <Conclusion> Technically difficult study due to patient body habitus. Study quality precludes accurate assessment of regional wall motion. Normal left ventricular chamber size, systolic function and wall motion. Left ventricular ejection fraction estimated to be 65 %. Mild left ventricular hypertrophy. Anterior Echo-free space, may be due to pericardial fat or effusion. All other cardiac chamber sizes are within normal limits. Focal aortic valve sclerosis with adequate cusp excursion. Thickened mitral valve leaflets with normal excursion. Mild mitral annulus and aortic root calcification. Pulmonic valve not well visualized. Normal tricuspid valve structure. IVC is normal in size with physiological collapse. A color flow and spectral Doppler study was performed and revealed: No aortic regurgitation. Trace mitral regurgitation. Mitral diastolic velocities suggest mild left ventricular diastolic dysfunction (Grade I). No tricuspid regurgitation. No pulmonic regurgitation present.
--- NOTE | 2020-10-05 14:57 | Cardiology Report ---
APPROVED REPORT EKG Measurement Heart [id number] <Conclusion> Normal sinus rhythm Normal ECG
[2020-10-05 15:47] VITALS: BP 131/91
--- NOTE | 2020-10-05 18:08 | General Progress Note ---
Subjective Allergies: Coded Allergies: No Known Allergies (Unverified , 07/02/15) Subjective She is doing status quo , WBC is 3.2 Objective Last 24 Hour Vital Signs Date Time Temp Pulse Resp B/P (MAP) Pulse Ox O2 Delivery O2 Flow Rate FiO2 10/05/20 17:59 74 131/91 10/05/20 15:47 97.5 74 18 131/91 (104) 98 10/05/20 12:26 76 160/74 10/05/20 12:00 96.8 76 18 165/74 (104) 100 10/05/20 12:00 65 10/05/20 09:00 Room Air 10/05/20 08:43 99 152/66 10/05/20 08:00 97.5 99 18 152/66 (94) 100 10/05/20 08:00 65 10/05/20 05:45 68 114/54 10/05/20 04:02 98.1 68 16 114/54 (74) 96 10/05/20 04:00 63 10/05/20 01:06 61 132/58 10/05/20 00:00 61 10/05/20 00:00 98.1 63 16 132/58 (82) 93 10/04/20 21:34 74 126/53 10/04/20 21:00 Room Air 10/04/20 21:00 Room Air 10/04/20 20:00 67 10/04/20 20:00 97.9 74 18 126/53 (77) 96 Intake and Output 10/04/20 10/05/20 19:00 07:00 Intake Total 450 ml Output Total 1500 ml 650 ml Balance -1500 ml -200 ml Tube Feeding 450 ml Output Urine Total 1500 ml 650 ml # Voids 3 1 Laboratory Tests 10/04/20 20:15: Vancomycin Level Trough 19.2H 10/05/20 05:20: White Blood Count 3.2L, Red Blood Count 3.79L, Hemoglobin 12.1, Hematocrit 37.4, Mean Corpuscular Volume 99, Mean Corpuscular Hemoglobin 31.8H, Mean Corpuscular Hemoglobin Concent 32.2, Red Cell Distribution Width 14.6, Platelet Count 116L, Mean Platelet Volume 9.1, Neutrophils (%) (Auto) , Lymphocytes (%) (Auto) , Monocytes (%) (Auto) , Eosinophils (%) (Auto) , Basophils (%) (Auto) , Differential Total Cells Counted 100, Neutrophils % (Manual) 41L, Lymphocytes % (Manual) 39, Monocytes % (Manual) 18H, Eosinophils % (Manual) 2, Basophils % (Manual) 0, Band Neutrophils 0, Platelet Estimate DecreasedL, Platelet Morphology Normal, Anisocytosis 1+, Sodium Level 143, Potassium Level 3.8, Chloride Level 111H, Carbon Dioxide Level 24, Anion Gap 8, Blood Urea Nitrogen 25H, Creatinine 0.7, Estimat Glomerular Filtration Rate > 60, Glucose Level 112H , Calcium Level 8.6, Total Bilirubin 0.5, Aspartate Amino Transf (AST/SGOT) 72H, Alanine Aminotransferase (ALT/SGPT) 89H, Alkaline Phosphatase 72, Total Protein 7.1, Albumin 2.3L, Globulin 4.8, Albumin/Globulin Ratio 0.5L Height (Feet): 5 Height (Inches): 8.00 Weight (Pounds): 264 General Appearance: WD/WN EENT: PERRL/EOMI Neck: non-tender, supple Cardiovascular: normal rate, regular rhythm Respiratory/Chest: chest wall non-tender, lungs clear Abdomen: normal bowel sounds, non tender Extremities: normal range of motion, non-tender Assessment/Plan Assessment/Plan: 1) Cellulitis of the LEs better 2) Sepsis is better 3) Schizophrenia Plan: ATB per ID Dr Paul is back tomorrow Agapito Mitchell MD Oct 05, 2020 18:08
[2020-10-05 20:00] VITALS: BP 130/61
[2020-10-05] MEDS: Atorvastatin 20mg tab GT SCH (21:42)
--- NOTE | 2020-10-05 22:02 | Diagnostic Imaging Report ---
EXAM: US Duplex Bilateral Lower Extremities Arteries CLINICAL HISTORY: PAIN TECHNIQUE: Real-time duplex ultrasound scan of the bilateral lower extremity arteries integrating B-mode two-dimensional vascular structure, Doppler spectral analysis and color flow Doppler imaging. COMPARISON: No relevant prior studies available. FINDINGS: Per technologist note, technically limited study as patient is an immobile. Right common femoral artery: No acute findings. No occlusion or significant stenosis on color flow and spectral Doppler imaging. Normal waveform. Right superficial femoral artery: No acute findings. No occlusion or significant stenosis on color flow and spectral Doppler imaging. Normal waveform. Right popliteal artery: No acute findings. No occlusion or significant stenosis on color flow and spectral Doppler imaging. Normal waveform. Right calf/foot arteries: No acute findings. No occlusion or significant stenosis on color flow and spectral Doppler imaging. Normal waveform. Left common femoral artery: No acute findings. No occlusion or significant stenosis on color flow and spectral Doppler imaging. Normal waveform. Left superficial femoral artery: No acute findings. No occlusion or significant stenosis on color flow and spectral Doppler imaging. Normal waveform. Left popliteal artery: No acute findings. No occlusion or significant stenosis on color flow and spectral Doppler imaging. Normal waveform. Left calf/foot arteries: No acute findings. No occlusion or significant stenosis on color flow and spectral Doppler imaging. Normal waveform. Soft tissues: Unremarkable. IMPRESSION: Unremarkable bilateral lower extremity duplex arterial ultrasound.
[2020-10-06] VITALS: BP 117/62
[2020-10-06] MEDS: dilTIAZem HCl 60mg tab GT SCH ×4 (00:26→17:18)
[2020-10-06] MEDS: Vancomycin 1gm/D5W 275ml IVPB SCH ×4 (02:07→13:46)
[2020-10-06 04:00] VITALS: BP 123/55
[2020-10-06 08:00] VITALS: BP 128/63
[2020-10-06] MEDS: Depakote 125mg Sprinkles GT SCH ×2 (09:41→21:50)
[2020-10-06] MEDS: levETIRAcetam 500mg/5ml Liquid GT SCH ×2 (09:42→17:18)
[2020-10-06] MEDS: QUEtiapine 200mg tab GT SCH ×2 (09:42→17:17)
[2020-10-06] MEDS: Multivitamins W/Minerals 15 ML UDC GT SCH (09:42)
[2020-10-06] MEDS: Heparin 5000 units/ml inj SUBQ SCH ×2 (09:44→21:54)
--- NOTE | 2020-10-06 11:37 | Infectious Diseases Prog Note ---
Assessment/Plan Assessment/Plan antibiotics : vancomycin iv A 1. right thigh cellulitis improving 2. + blood cultures with coag neg staph likely contaminated 3. diabetes mellitus 4. hypertension 5. schizophrenia 6. CVA P 1. continue iv vancomycin 3 more days 2. will follow up cultures Subjective ROS Limited/Unobtainable: Yes Allergies: Coded Allergies: No Known Allergies (Unverified , 07/02/15) Objective Last 24 Hour Vital Signs Date Time Temp Pulse Resp B/P (MAP) Pulse Ox O2 Delivery O2 Flow Rate FiO2 10/06/20 09:42 60 128/63 10/06/20 09:00 Room Air 10/06/20 08:00 96.6 60 18 128/63 (84) 98 10/06/20 08:00 59 10/06/20 06:45 60 16 98 Room Air 21 10/06/20 05:14 58 123/55 10/06/20 04:00 63 10/06/20 04:00 97.5 58 20 123/55 (77) 98 10/06/20 00:26 56 117/62 10/06/20 00:00 54 10/06/20 00:00 96.4 60 16 117/62 (80) 99 10/05/20 21:42 72 130/61 10/05/20 21:00 Room Air 10/05/20 20:00 58 10/05/20 20:00 97.5 72 16 130/61 (84) 98 10/05/20 19:05 60 16 99 Room Air 21 10/05/20 17:59 74 131/91 10/05/20 16:00 71 10/05/20 15:47 97.5 74 18 131/91 (104) 98 10/05/20 12:26 76 160/74 10/05/20 12:00 96.8 76 18 165/74 (104) 100 10/05/20 12:00 65 Height (Feet): 5 Height (Inches): 8.00 Weight (Pounds): 264 Respiratory/Chest: lungs clear Cardiovascular: normal rate, regular rhythm, no gallop/murmur Abdomen: soft, non tender Extremities: other - + edema, decreased erythema bilaterally Laboratory Tests Test 10/05/20 19:50 Vancomycin Level Trough 22.0 ug/mL (5.0-12.0) H Current Medications Medications (Trade) Dose Ordered Sig/Leonidas Route PRN Reason Start Time Stop Time Status Last Admin Dose Admin Acetaminophen (Tylenol) 650 mg Q6H PRN GT For Pain 10/02/20 23:15 11/01/20 23:14 Albuterol Sulfate (Proventil) 2.5 mg Q6H PRN HHN Shortness of Breath 10/02/20 22:45 10/07/20 22:44 Atorvastatin Calcium (Lipitor) 20 mg BEDTIME GT 10/03/20 21:00 01/01/21 20:59 10/05/20 21:42 Dextrose (Dextrose 50%) 25 ml Q30M PRN IV Hypoglycemia 10/02/20 23:00 12/31/20 22:59 Dextrose (Dextrose 50%) 50 ml Q30M PRN IV Hypoglycemia 10/02/20 23:00 12/31/20 22:59 Diltiazem HCl (Cardizem Tab) 60 mg Q6HR GT 10/03/20 13:00 11/02/20 12:59 10/06/20 05:14 Divalproex Sodium (Depakote Sprinkles) 250 mg Q12HR GT 10/02/20 23:30 11/16/20 23:29 10/06/20 09:41 Heparin Sodium (Porcine) (Heparin 5000 units/ml) 5,000 units EVERY 12 HOURS SUBQ 10/03/20 10:00 11/17/20 09:59 10/06/20 09:44 Levetiracetam (Keppra) 750 mg TWICE A DAY GT 10/03/20 09:00 11/17/20 08:59 10/06/20 09:42 Magnesium Hydroxide (Mom) 30 ml DAILY PRN GT Constipation 10/02/20 22:45 11/01/20 22:44 Metoprolol Tartrate (Lopressor) 25 mg EVERY 12 HOURS GT 10/02/20 23:15 12/31/20 23:14 10/06/20 09:42 Multivitamins (Multivitamins W/ Minerals 15ml Liquid) 15 ml DAILY GT 10/03/20 09:00 11/02/20 08:59 10/06/20 09:42 Quetiapine Fumarate (SEROqueL) 200 mg TWICE A DAY GT 10/03/20 09:00 11/17/20 08:59 10/06/20 09:42 Vancomycin HCl (Vanco pharmacy to dose) 1 ea DAILY PRN MISC Per rx protocol 10/03/20 06:15 11/02/20 06:14 Vancomycin HCl 1 gm/Dextrose 275 ml @ 183.708 mls/hr Q12H IVPB 10/06/20 03:00 10/11/20 02:59 10/06/20 02:07 Luis Dimas MD Oct 06, 2020 11:37
[2020-10-06 12:00] VITALS: BP 131/65
--- NOTE | 2020-10-06 15:42 | General Progress Note ---
Subjective ROS Limited/Unobtainable: Yes Allergies: Coded Allergies: No Known Allergies (Unverified , 07/02/15) Objective Last 24 Hour Vital Signs Date Time Temp Pulse Resp B/P (MAP) Pulse Ox O2 Delivery O2 Flow Rate FiO2 10/06/20 13:47 76 131/65 10/06/20 12:00 96.1 76 20 131/65 (87) 95 10/06/20 12:00 63 10/06/20 09:42 60 128/63 10/06/20 09:00 Room Air 10/06/20 08:00 96.6 60 18 128/63 (84) 98 10/06/20 08:00 59 10/06/20 06:45 60 16 98 Room Air 21 10/06/20 05:14 58 123/55 10/06/20 04:00 63 10/06/20 04:00 97.5 58 20 123/55 (77) 98 10/06/20 00:26 56 117/62 10/06/20 00:00 54 10/06/20 00:00 96.4 60 16 117/62 (80) 99 10/05/20 21:42 72 130/61 10/05/20 21:00 Room Air 10/05/20 20:00 58 10/05/20 20:00 97.5 72 16 130/61 (84) 98 10/05/20 19:05 60 16 99 Room Air 21 10/05/20 17:59 74 131/91 10/05/20 16:00 71 10/05/20 15:47 97.5 74 18 131/91 (104) 98 Intake and Output 10/05/20 10/06/20 19:00 07:00 Intake Total 55 ml Output Total 1000 ml 800 ml Balance -1000 ml -745 ml Tube Feeding 55 ml Output Urine Total 1000 ml 800 ml Laboratory Tests 10/05/20 19:50: Vancomycin Level Trough 22.0H Height (Feet): 5 Height (Inches): 8.00 Weight (Pounds): 264 General Appearance: confused, morbidly obese EENT: normal ENT inspection Neck: normal alignment Cardiovascular: regular rhythm Respiratory/Chest: lungs clear Abdomen: non tender, other - [peg Edema: trace edema Neurologic: motor weakness, disoriented Skin: other - sacral redness and stage 2 ulcer, heel fscabs bilBrett Gaspar MD 9, 2020 15:42
--- NOTE | 2020-10-06 15:48 | General Progress Note ---
Subjective ROS Limited/Unobtainable: Yes Allergies: Coded Allergies: No Known Allergies (Unverified , 07/02/15) Objective Last 24 Hour Vital Signs Date Time Temp Pulse Resp B/P (MAP) Pulse Ox O2 Delivery O2 Flow Rate FiO2 10/06/20 13:47 76 131/65 10/06/20 12:00 96.1 76 20 131/65 (87) 95 10/06/20 12:00 63 10/06/20 09:42 60 128/63 10/06/20 09:00 Room Air 10/06/20 08:00 96.6 60 18 128/63 (84) 98 10/06/20 08:00 59 10/06/20 06:45 60 16 98 Room Air 21 10/06/20 05:14 58 123/55 10/06/20 04:00 63 10/06/20 04:00 97.5 58 20 123/55 (77) 98 10/06/20 00:26 56 117/62 10/06/20 00:00 54 10/06/20 00:00 96.4 60 16 117/62 (80) 99 10/05/20 21:42 72 130/61 10/05/20 21:00 Room Air 10/05/20 20:00 58 10/05/20 20:00 97.5 72 16 130/61 (84) 98 10/05/20 19:05 60 16 99 Room Air 21 10/05/20 17:59 74 131/91 10/05/20 16:00 71 10/05/20 15:47 97.5 74 18 131/91 (104) 98 Intake and Output 10/05/20 10/06/20 19:00 07:00 Intake Total 55 ml Output Total 1000 ml 800 ml Balance -1000 ml -745 ml Tube Feeding 55 ml Output Urine Total 1000 ml 800 ml Laboratory Tests 10/05/20 19:50: Vancomycin Level Trough 22.0H Height (Feet): 5 Height (Inches): 8.00 Weight (Pounds): 264 General Appearance: no apparent distress, alert EENT: normal ENT inspection Neck: normal alignment Cardiovascular: regular rhythm Respiratory/Chest: lungs clear Abdomen: non tender, other - peg Edema: trace edema Neurologic: motor weakness, disoriented Skin: other - sacral small stage 2 and redness, dry scabs heerl and L foot Assessment/Plan Problem List: (1) Decubitus skin ulcer ICD Codes: L89.90 - Pressure ulcer of unspecified site, unspecified stage SNOMED: 876156381 (2) Cellulitis ICD Codes: L03.90 - Cellulitis, unspecified SNOMED: 899381752 (3) Fever ICD Codes: R50.9 - Fever, unspecified SNOMED: 601182535 (4) Quadriplegia ICD Codes: G82.50 - Quadriplegia, unspecified SNOMED: 63075276 (5) CVA, old, cognitive deficits ICD Codes: I69.319 - Unspecified symptoms and signs involving cognitive functions following cerebral infarction SNOMED: 97721937, 420093681, 184321471, 239485347 (6) Epilepsy ICD Codes: G40.909 - Epilepsy, unspecified, not intractable, without status epilepticus SNOMED: 02617382 (7) COPD (chronic obstructive pulmonary disease) ICD Codes: J44.9 - Chronic obstructive pulmonary disease, unspecified SNOMED: 56430797 Assessment/Plan: [facility] Brett Paul MD Oct 06, 2020 15:48
[2020-10-06 16:00] VITALS: BP 126/74
--- NOTE | 2020-10-06 16:02 | Diagnostic Imaging Report ---
Indication: Erythema and edema of the distal first and second toes Technique: Sagittal, axial, and coronal T1 fast spin echo and fast spin echo STIR images of the forefoot Comparison: none Findings: There is edema of the dorsum of the forefoot and slight edema of the subcutaneous fat of all of the toes. No abnormal marrow signal is demonstrated. No focal fluid collection to suggest drainable abscess demonstrated. Impression: Soft tissue edema. This could be edema due to vasogenic causes or could indicate cellulitis. No marrow abnormalities to suggest acute osteomyelitis No focal drainable fluid collection demonstrated
--- NOTE | 2020-10-06 16:16 | Diagnostic Imaging Report ---
Indication: Eschar of the distal hallux and third digit with erythema and edema Technique: Sagittal, axial, and coronal T1 FSE and FSE STIR images of the left forefoot Comparison: none Findings: Increased STIR and decreased T1 signal is seen at the medial base of the first proximal phalanx. Very focal around area of abnormal signal is seen within the first metatarsal head, probably a degenerative subchondral cyst. No other marrow signal abnormality is appreciated. There is mild edema of the dorsal and medial subcutaneous fat. There is less striking edema of the subcutaneous fat of the digits. No focal drainable fluid collection demonstrated. Impression: Abnormal increased STIR and decreased T1 signal at the medial base of the first proximal phalanx, could represent a focus of acute osteomyelitis.
[2020-10-06 20:00] VITALS: BP 150/73
[2020-10-06] MEDS: Atorvastatin 20mg tab GT SCH (21:50)
[2020-10-07] VITALS: BP 149/76
[2020-10-07] MEDS: dilTIAZem HCl 60mg tab GT SCH ×4 (00:12→18:09)
[2020-10-07] MEDS: Vancomycin 1gm/D5W 275ml IVPB SCH ×2 (03:20)
[2020-10-07 04:00] VITALS: BP 142/62
[2020-10-07 07:58] VITALS: BP 132/54
[2020-10-07] MEDS: levETIRAcetam 500mg/5ml Liquid GT SCH ×2 (08:04→18:09)
[2020-10-07] MEDS: QUEtiapine 200mg tab GT SCH ×2 (08:04→18:09)
[2020-10-07] MEDS: Multivitamins W/Minerals 15 ML UDC GT SCH (08:04)
[2020-10-07] MEDS: Depakote 125mg Sprinkles GT SCH (08:04)
[2020-10-07] MEDS: Heparin 5000 units/ml inj SUBQ SCH (08:05)
[2020-10-07 12:00] VITALS: BP 136/64
[2020-10-07] MEDS ORDERED: VANCOMYCIN1 GM/2002 IV (13:42)
--- NOTE | 2020-10-07 14:19 | Infectious Diseases Prog Note ---
Assessment/Plan Assessment/Plan antibiotics : vancomycin iv A 1. right thigh cellulitis improving 2. + blood cultures with coag neg staph likely contaminated 3. diabetes mellitus 4. hypertension 5. schizophrenia 6. CVA 7. left foot osteomyelitis P 1. continue iv vancomycin 37 more days 2. will follow up cultures Subjective ROS Limited/Unobtainable: Yes Allergies: Coded Allergies: No Known Allergies (Unverified , 07/02/15) Objective Last 24 Hour Vital Signs Date Time Temp Pulse Resp B/P (MAP) Pulse Ox O2 Delivery O2 Flow Rate FiO2 10/07/20 12:00 97.9 60 20 136/64 (88) 98 10/07/20 12:00 62 10/07/20 11:36 66 136/64 10/07/20 09:00 Room Air 10/07/20 08:04 69 132/54 10/07/20 08:00 69 10/07/20 07:58 97.5 69 18 132/54 (80) 97 10/07/20 05:16 75 142/62 10/07/20 04:00 97.5 58 18 142/62 (88) 100 10/07/20 04:00 58 10/07/20 00:12 59 150/73 10/07/20 00:00 97.5 62 18 149/76 (100) 97 10/07/20 00:00 57 10/06/20 21:48 65 150/73 10/06/20 21:00 Room Air 10/06/20 20:00 97.2 65 16 150/73 (98) 98 10/06/20 20:00 64 10/06/20 17:18 67 126/74 10/06/20 16:00 62 10/06/20 16:00 96.1 58 18 126/74 (91) 98 Height (Feet): 5 Height (Inches): 8.00 Weight (Pounds): 264 Respiratory/Chest: lungs clear Cardiovascular: normal rate, regular rhythm, no gallop/murmur Abdomen: soft, non tender Extremities: other - + edema Laboratory Tests Test 10/07/20 02:08 10/07/20 14:05 POC Whole Blood Glucose 99 MG/DL (74-106) Vancomycin Level Trough Pending Current Medications Medications (Trade) Dose Ordered Sig/Leonidas Route PRN Reason Start Time Stop Time Status Last Admin Dose Admin Acetaminophen (Tylenol) 650 mg Q6H PRN GT For Pain 10/02/20 23:15 11/01/20 23:14 10/07/20 05:42 Albuterol Sulfate (Proventil) 2.5 mg Q6H PRN HHN Shortness of Breath 10/02/20 22:45 10/07/20 22:44 Atorvastatin Calcium (Lipitor) 20 mg BEDTIME GT 10/03/20 21:00 01/01/21 20:59 10/06/20 21:50 Dextrose (Dextrose 50%) 25 ml Q30M PRN IV Hypoglycemia 10/02/20 23:00 12/31/20 22:59 Dextrose (Dextrose 50%) 50 ml Q30M PRN IV Hypoglycemia 10/02/20 23:00 12/31/20 22:59 Diltiazem HCl (Cardizem Tab) 60 mg Q6HR GT 10/03/20 13:00 11/02/20 12:59 10/07/20 11:36 Divalproex Sodium (Depakote Sprinkles) 250 mg Q12HR GT 10/02/20 23:30 11/16/20 23:29 10/07/20 08:04 Heparin Sodium (Porcine) (Heparin 5000 units/ml) 5,000 units EVERY 12 HOURS SUBQ 10/03/20 10:00 11/17/20 09:59 10/07/20 08:05 Levetiracetam (Keppra) 750 mg TWICE A DAY GT 10/03/20 09:00 11/17/20 08:59 10/07/20 08:04 Magnesium Hydroxide (Mom) 30 ml DAILY PRN GT Constipation 10/02/20 22:45 11/01/20 22:44 Metoprolol Tartrate (Lopressor) 25 mg EVERY 12 HOURS GT 10/02/20 23:15 12/31/20 23:14 10/07/20 08:04 Multivitamins (Multivitamins W/ Minerals 15ml Liquid) 15 ml DAILY GT 10/03/20 09:00 11/02/20 08:59 10/07/20 08:04 Quetiapine Fumarate (SEROqueL) 200 mg TWICE A DAY GT 10/03/20 09:00 11/17/20 08:59 10/07/20 08:04 Vancomycin HCl (Vanco pharmacy to dose) 1 ea DAILY PRN MISC Per rx protocol 10/03/20 06:15 11/02/20 06:14 Vancomycin HCl 1 gm/Dextrose 275 ml @ 183.708 mls/hr Q12H IVPB 10/06/20 03:00 10/11/20 02:59 10/07/20 03:20 Luis Dimas MD Oct 07, 2020 14:19
[2020-10-07 16:00] VITALS: BP 142/67
[2020-10-07] MEDS ORDERED: Vancomycin 500 MG in NS 110 ML IVPB SCH (18:00)
[2020-10-07 18:09] VITALS: BP 142/67
--- NOTE | 2020-10-07 21:14 | Discharge Summary ---
DATE OF ADMISSION: 10/02/2020 DATE OF DISCHARGE: 10/07/2020 PERTINENT HISTORY: The patient is a resident of an [facility], who presented with a fever of 102 at the [facility]. She was somewhat more lethargic than usual. There is a history of multi-infarct dementia, gastrostomy feedings, morbid obesity, paroxysmal atrial fibrillation, COPD, schizophrenia, diabetes, and prior CVAs. PERTINENT PHYSICAL FINDINGS: See the note by Dr. Mitchell, who saw the patient when I was away. HEAD, EYES, EARS, NOSE AND THROAT: Unremarkable. LUNGS: Decreased air excursion bilaterally. HEART: Regular rhythm. No gallop. ABDOMEN: Soft. There is a gastrostomy. EXTREMITIES: No cyanosis or clubbing. No pedal edema. There are some sores on the heels and also in between the toes with some redness, which is extending into the mid calf. COURSE IN THE HOSPITAL: The patient was started on empiric antibiotics. The cellulitis that was apparent on admission cleared. She had coag-negative Staph in the blood, which was felt by Dr. Dimas in Infectious Disease consultation to be a contaminant. The patient was maintained on vancomycin and cellulitis cleared. There was some scabs on the feet. There was a questionable small area in the left first toe of questionable osteomyelitis, but not definite on the MRI. The patient had no further fevers and exam was otherwise stable, and she was discharged back to the [facility] facility. FINAL DIAGNOSES: 1. Cellulitis of the lower extremities. 2. Small stage II sacral decubitus ulcer. 3. Scabs on the feet. 4. Possible osteomyelitis of the left great toe, but study is inconclusive. 5. History of multi-infarct dementia. 6. History of dysphagia, on gastrostomy feedings. 7. History of epilepsy. 8. History of obesity. 9. COPD. 10. Hypertension. DISCHARGE DISPOSITION: Back to the [facility] on tube feedings and on prior to admission medication regimen. She will also receive two more days of IV vancomycin 1 g q.12 hours to complete the course as recommended by the Infectious Disease home energy consultant supervisor. Brett Paul M.D. DR: DONYA JOB#: [id number] CC:
== END 2020-10-07 19:45 | DRG 720 ==
LOC: EDBD 16:10 → EMR 16:36 → 2E 19:15 → EDBEDREQ 21:57
DX: A41.9 Sepsis, unspecified organism (principal); L03.119 Cellulitis of unspecified part of limb; F20.9 Schizophrenia, unspecified; I11.0 Hypertensive heart disease with heart failure; I50.9 Heart failure, unspecified; E66.01 Morbid (severe) obesity due to excess calories; Z68.41 Body mass index [BMI] 40.0-44.9, adult; L89.152 Pressure ulcer of sacral region, stage 2; R13.10 Dysphagia, unspecified; Z43.1 Encounter for attention to gastrostomy; I48.0 Paroxysmal atrial fibrillation; Z87.891 Personal history of nicotine dependence; G40.909 Epilepsy, unspecified, not intractable, without status epilepticus; F01.50 Vascular dementia, unspecified severity, without behavioral disturbance, psychotic disturbance, mood disturbance, and anxiety; L03.116 Cellulitis of left lower limb; L03.115 Cellulitis of right lower limb; J44.9 Chronic obstructive pulmonary disease, unspecified; E11.69 Type 2 diabetes mellitus with other specified complication; M86.8X7 Other osteomyelitis, ankle and foot
CPT/HCPCS: 36415; 71045; 80053; 80164; 80202; 81003; 82248; 82378; 82550; 82553; 82962; 83605; 83690; 83735; 83880; 84100; 84484; 85007; 85025; 85610; 85730; 87040; 87081; 87181; 93005; 93306; 93925; 93970; 94664; 96361; 96365; 99285; J7030; U0002